=== PATIENT | male | born 1975 | race Caucasian/White ===

== ENCOUNTER 2018-03-23 03:16 | Observation (INO) ==
[2018-03-23 06:26] LABS: Basophils % 0.1 %; Hematocrit 42.1 % (37.5-50.1); Hemoglobin 14.3 g/dL (12.9-16.9); Immature Granulocytes % 0.4 % (0-4); Lymphocytes # 2.8 K/mcL (0.6-4.6); Lymphocytes % 19.3 %; Mean Corpuscular Hemoglobin 29.7 pg (28.0-33.3); Mean Corpuscular Volume 87.3 fL (83.0-100.0); Mean Platelet Volume 9.9 fL (9.4-12.4); Monocytes # 1.4 K/mcL (0.0-1.3); Monocytes % 9.6 %; Neutrophils # 10.2 K/mcL (1.6-8.9); Platelet Count 200 K/mcL (140-400); Red Blood Count 4.82 M/mcL (4.19-5.50); Red Cell Distribution Width 13.3 % (11.5-14.5); Segmented Neutrophils % 70.6 %
[2018-03-23 06:49] LABS: BUN/Creatinine Ratio 23 (6-26); Blood Urea Nitrogen 14 mg/dL (6-20); Calcium 9.7 mg/dL (8.6-10.3); Carbon Dioxide 19 mEq/L (23-29); Chloride 104 mEq/L (98-107); Glucose 200 mg/dL (70-105); Magnesium 1.6 mg/dL (1.6-2.6); Osmolality,Calculated 290 (280-300); Potassium 4.4 mEq/L (3.5-5.1); Sodium 137 mEq/L (136-145); eGFR For Non-African Americans > 60 (> 60)
[2018-03-23] MEDS ORDERED: Naloxone 0.4 MG/ML INJ IVP PRN (07:24)
[2018-03-23] MEDS ORDERED: Dextrose Gel 15 GM/37.5 ML TUBE PO PRN ×2 (07:26)
[2018-03-23] MEDS ORDERED: *HR* Dextrose 50 % in Water (Syg) 50 ML SYRINGE IVP PRN (07:26)
[2018-03-23] MEDS ORDERED: D5% in Water 1,000 ML IVC PRN (07:26)
[2018-03-23 07:54] LABS: Chol/HDL Ratio 2.1 (0-4.9); Cholesterol 73 mg/dL (< 200); HDL Cholesterol 35 mg/dL (40-59); LDL Cholesterol,Calculated 20 mg/dL (0-99); Triglycerides 90 mg/dL (< 150)
[2018-03-23 08:08] LABS: Estimated Average Glucose 295 mg/dl; Hemoglobin A1C 11.9 %
[2018-03-23] MEDS: Insulin LISPRO 300 UNITS/3 ML VIAL SQ SCH ×5 (08:08→21:38)
[2018-03-23 08:17] LABS: Thyroid Stimulating Hormone < 0.010 mcIU/mL (0.340-5.600)
--- NOTE | 2018-03-23 08:44 | Internal Med History&Physical ---
Date of Encounter: 03/23/18 Time of Encounter: 07:40 Internal Medicine - H&P: HPI Chief complaint: palpitation Admitted From: Home History of present illness: Mr. Hi is a 42 year old male with past history of type 1 diabetes, tobacco abuse, presented to the outside hospital emergency department with sudden onset of palpitation and chest discomfort. Occurred at around 11 PM while taking a shower, midsternal, radiating to the jaw, sharp in nature, no aggravating/ relieving factors. He also had one episode of emesis without shortness of breath or diaphoresis. No fever/chills, cough, sputum production, abdominal pain , change in bowel habits, or dysuria. No joint pain or rash. Denies any sick contacts. At the outside hospital emergency department, his initial EKG was reported to be in afib with ventricular rate of 171. No changes concerning for ischemia was noted. First troponin was negative. Urine tox screen was positive for marijuana and oxycodone. Urinalysis was negative for nitrite or leukocyte esterase. He was given lovenox, IV metoprolol, and IV cardizem at the OSH ED and transferred to [facility] for further management. He had second troponin done when he arrived at [facility] which was again -ve. While looking at his telemetry, it appears that he has P waves preceding every QRS. Past Med Surg Social Fam HX - Past Medical History Medical history: diabetes, thyroid disease Psychiatric history: no psych history - Social History Smoking Status: Current every day smoker Packs per day: 1 Smokeless Tobacco Status: Yes Alcohol use: rarely Drug use: marijuana - Family History Mother Age: 61 Living Status: Still Living Hx Family Cardiac Disorders: No Hx Family Respiratory Disorders: No Hx Family Cancer: Yes (Melanoma) Hx Family GI Disorders: No Hx Family Genitourinary Disorders: No Hx Family Endocrine Disorder: No Hx Family Musculoskeletal Disorders: No Hx Family Neuromuscular Disorders: No Hx Family Neurologic Disorders: No Hx Family HEENT Disorders: No Hx Family Autoimmune Disorders: No Hx Family Reproductive Disorders: No Hx Family Psychosocial Disorders: No Hx Family Medical Disorders: No Father Age: 65 Living Status: Still Living Hx Family Cardiac Disorders: No Hx Family Respiratory Disorders: No Hx Family Cancer: No Hx Family GI Disorders: No Hx Family Genitourinary Disorders: No Hx Family Endocrine Disorder: No Hx Family Musculoskeletal Disorders: No Hx Family Neuromuscular Disorders: No Hx Family Neurologic Disorders: No Hx Family HEENT Disorders: No Hx Family Autoimmune Disorders: No Hx Family Reproductive Disorders: No Hx Family Psychosocial Disorders: No Hx Family Medical Disorders: No Internal Medicine - H&P: Meds Insulin ASPART [NovoLOG] 5 - 7 unit SQ ACHS 03/23/18 [History] Insulin Glargine [Lantus] 20 unit SQ BID 03/23/18 [History] 3 Allergy/AdvReac Type Severity Reaction Status Date / Time No Known Allergies Allergy Verified 03/23/18 05:40 All Systems PM: A 10-system review of systems was performed and is negative for pertinent findings except as documented above in the HPI. - Constitutional Vitals: Temp Pulse Resp BP Pulse Ox 97.9 F 122 16 142/76 95 03/23/18 07:48 03/23/18 08:22 03/23/18 07:48 03/23/18 08:22 03/23/18 08:22 Exam: General: Alert and oriented, not in acute distress. HEENT:EOM, pupils equal, round and reactive. Cardiovascular: Tachycardic, regular rhythm. Normal S1 & S2, No JVD. No murmur. Lungs: clear to auscultation, no wheezes/rales Abdomen:Soft, non-tender, no rigidity. Extremities:No deformity or swelling Neurological:Normal cognition and motor skills. Non-focal Skin:Normal color, no rash, no lesions. Pulses:Carotid and radial pulses normal +2. Rest of the physical exam is non contributory Internal Med - H&P Results - Labs CBC & Chem 7: 03/23/18 06:12 03/23/18 06:12 Labs: Short CBC 03/23/18 Range/Units 06:12 WBC 14.4 H (4.3-11.1) K/mcL Hgb 14.3 (12.9-16.9) g/dL Hct 42.1 (37.5-50.1) % Plt Count 200 (140-400) K/mcL Neutrophils # 10.2 H (1.6-8.9) K/mcL BMP 03/23/18 06:12 Sodium 137 Potassium 4.4 Chloride 104 Carbon Dioxide 19 L BUN 14 Creatinine 0.60 L Glucose 200 H Calcium 9.7 Cardiac Enzymes 03/23/18 Range/Units 06:12 Troponin I < 0.03 (< 0.04) ng/mL - Assessment and plan (1) Tachyarrhythmia Current Visit: Yes Status: Acute Assessment and plan: Last 2 EKGs reviewed (one from [facility] and [facility]) -> no clear P waves identified, ventricular rate varying from 130 to 170 Initially thought to be in A. fib with RVR but upon examining his telemetry, he appears to have P waves preceding QRS complexes. Will repeat EKG troponin -ve x 2, ACS ruled out [id number] score of 1 for DM. He was given lovenox at the [facility] ED, will wait till EKG comes back before initiating the patient on ASA. started on cardigem gtt, titrate off and try to use PRN lopressor check TSH Echocardiogram (2) Leukocytosis Current Visit: Yes Status: Acute Assessment and plan: Likely reactive, no signs and symptoms of infection identified Urinalysis was negative Check chest x-ray Monitor off antibiotics Qualifiers: Leukocytosis type: unspecified Qualified Code(s): D72.829 - Elevated white blood cell count, unspecified (3) Type 1 diabetes mellitus Current Visit: No Status: Chronic Assessment and plan: On Lantus 20 units twice a day & sliding scale Humalog resume levemir 20U BID with low dose sliding scale ADA diet check A1c Qualifiers: Diabetes mellitus complication status: with unspecified complications Qualified Code(s): E10.8 - Type 1 diabetes mellitus with unspecified complications (4) Tobacco abuse Current Visit: No Status: Chronic Assessment and plan: Counseling and education provided Declines nicotine replacement therapy (5) DVT prophylaxis Current Visit: Yes Status: Acute Assessment and plan: SCD - Time Spent With Patient Total time spent is greater than 50% in coordination of care (as documented) at patient's floor/unit and/or counseling patient:
[2018-03-23] MEDS ORDERED: *HR* Metoprolol 5 MG/5 ML VIAL IVP PRN (08:49)
[2018-03-23 10:06] LABS: Triiodothyronine (T3) Free 10.28 pg/mL (2.50-3.90)
[2018-03-23] MEDS: Insulin DETEMIR 100 UNIT/ML X5UNITS SQ SCH ×2 (14:07→21:30)
[2018-03-23] MEDS: methIMAzole 5 MG TABLET PO SCH ×2 (14:07→18:09)
[2018-03-23] MEDS ORDERED: Insulin LISPRO 300 UNITS/3 ML VIAL SQ SCH (21:00)
[2018-03-23] MEDS ORDERED: Insulin DETEMIR 100 UNIT/ML X5UNITS SQ SCH (21:00)
[2018-03-24] MEDS: methIMAzole 5 MG TABLET PO SCH ×4 (00:08→17:49)
[2018-03-24 06:10] LABS: Basophils % 0.1 %; Eosinophils # 0.2 K/mcL (0.0-0.6); Hematocrit 41.2 % (37.5-50.1); Hemoglobin 13.8 g/dL (12.9-16.9); Immature Granulocytes % 0.1 % (0-4); Lymphocytes # 2.7 K/mcL (0.6-4.6); Lymphocytes % 40.1 %; Mean Corpuscular HGB Conc 33.5 g/dL (31.6-35.5); Mean Corpuscular Volume 86.6 fL (83.0-100.0); Monocytes # 0.9 K/mcL (0.0-1.3); Monocytes % 13.2 %; Platelet Count 204 K/mcL (140-400); Red Blood Count 4.76 M/mcL (4.19-5.50); Red Cell Distribution Width 12.9 % (11.5-14.5); Segmented Neutrophils % 43.5 %
[2018-03-24 06:25] LABS: BUN/Creatinine Ratio 16 (6-26); Blood Urea Nitrogen 8 mg/dL (6-20); Calcium 9.6 mg/dL (8.6-10.3); Carbon Dioxide 22 mEq/L (23-29); Chloride 104 mEq/L (98-107); Glucose 251 mg/dL (70-105); Magnesium 1.4 mg/dL (1.6-2.6); Osmolality,Calculated 289 (280-300); Potassium 3.9 mEq/L (3.5-5.1); Sodium 136 mEq/L (136-145); eGFR For Non-African Americans > 60 (> 60)
[2018-03-24] MEDS: Insulin LISPRO 300 UNITS/3 ML VIAL SQ SCH ×4 (08:53→21:40)
[2018-03-24] MEDS: Insulin DETEMIR 100 UNIT/ML X5UNITS SQ SCH ×2 (08:54→21:40)
--- NOTE | 2018-03-24 13:03 | Internal Med Progress Note ---
Hospitalist Progress Note - Encounter Date of Encounter: 03/24/18 Time of Encounter: 09:13 - Subjective Interval History: Patient seen and examined this morning. Admitted for tachyarrythmia. Feeling better now. No palpitations, dizziness or chest pain. No sob. - Exam Vitals: Temp Pulse Resp BP Pulse Ox 97.8 F 94 16 140/86 97 03/24/18 11:39 03/24/18 11:39 03/24/18 11:39 03/24/18 11:39 03/24/18 11:39 Exam: General: Alert and oriented, not in acute distress. HEENT:EOM, pupils equal, round and reactive. Cardiovascular: regular rhythm. Normal S1 & S2, No JVD. No murmur. Lungs: clear to auscultation, no wheezes/rales Abdomen:Soft, non-tender, no rigidity. Extremities:No deformity or swelling Neurological:Normal cognition and motor skills. Non-focal Skin:Normal color, no rash, no lesions. - Assessment and Plan (1) Tachyarrhythmia Current Visit: Yes Status: Acute (2) Leukocytosis Current Visit: Yes Status: Acute (3) Type 1 diabetes mellitus Current Visit: No Status: Chronic (4) Tobacco abuse Current Visit: No Status: Chronic (5) DVT prophylaxis Current Visit: Yes Status: Acute - Summary of Assessment and Plan Summary of Assessment and Plan: Tachyarrhythmia - I believe patient has afib based on tele and first EKG. Symptoms lasting more than 48 hrs(since sunday 10 am till ER) and occasionally intermittently before. - Troponin -ve x 2, ACS ruled out - [id number] score of 1 for DM. He was given lovenox at the OSH ED. - Currently on cardigem gtt. Titrating down. - TSH suppressed. T3, T4 elevated. Started on Propranolol and methimazole. Will continue - ECHO with EF 65%, otherwise unremarkable. - Will continue lovenox for now. Consult cardiology for second opinion about long term care social worker anticoagulation. Discussed with patient about continuing AC for now. Patient agreeable. Leukocytosis - Likely reactive, no signs and symptoms of infection identified - UA and CXR unremarkable. - no indication for starting antibiotics Type 1 diabetes mellitus - On levemir, SSI and accucheks - ADA diet - A1c of 11.9 Tobacco and marijuana abuse - Counseling and education provided - Declines nicotine replacement therapy DVT prophylaxis - SCD - Time Spent with Patient Total time spent is greater than 50% in coordination of care (as documented) at patient's floor/unit and/or counseling patient: Internal Medicine: Result - Labs CBC & Chem 7: 03/24/18 05:47 03/24/18 05:47 Labs: Short CBC 03/24/18 Range/Units 05:47 WBC 6.8 D (4.3-11.1) K/mcL Hgb 13.8 (12.9-16.9) g/dL Hct 41.2 (37.5-50.1) % Plt Count 204 (140-400) K/mcL Neutrophils # 3.0 (1.6-8.9) K/mcL BMP 03/24/18 05:47 Sodium 136 Potassium 3.9 Chloride 104 Carbon Dioxide 22 L BUN 8 Creatinine 0.49 L Glucose 251 H Calcium 9.6 - Impressions Impressions Echocardiogram 03/23/18 07:23 Impressions: LVEF 65%. Normal LV chamber size, wall thickness and function. Mild left ventricular diastolic dysfunction. Normal right ventricular structure and function. No evidence of pulmonary hypertension. Chest X-Ray 03/23/18 08:42 IMPRESSION: No acute process. D/ / Fran Munoz MD / Fran Munoz MD Interpreting Provider: Fran Munoz MD Consult Discharge Plan - Plan Referrals: Avelina Sutton CNP [Primary Care Provider] - Mervin Taylor MD [Family Provider] - (2) Leukocytosis Qualifiers: Leukocytosis type: unspecified Qualified Code(s): D72.829 - Elevated white blood cell count, unspecified (3) Type 1 diabetes mellitus Qualifiers: Diabetes mellitus complication status: with unspecified complications Qualified Code(s): E10.8 - Type 1 diabetes mellitus with unspecified complications
[2018-03-24] MEDS ORDERED: *HR* Enoxaparin 60 MG/0.6 ML SYRINGE SQ SCH (16:09)
[2018-03-24] MEDS ORDERED: *HR* Metoprolol 5 MG/5 ML VIAL IVP PRN (16:15)
[2018-03-25] MEDS: methIMAzole 5 MG TABLET PO SCH ×2 (00:55→06:20)
[2018-03-25] MEDS ORDERED: *HR* Enoxaparin 60 MG/0.6 ML SYRINGE SQ SCH (06:00)
[2018-03-25] MEDS: Insulin DETEMIR 100 UNIT/ML X5UNITS SQ SCH (08:17)
[2018-03-25] MEDS: Insulin LISPRO 300 UNITS/3 ML VIAL SQ SCH ×2 (08:19→13:06)
[2018-03-25] MEDS ORDERED: methIMAzole 5 MG TABLET PO SCH (09:00)
--- NOTE | 2018-03-25 10:00 | Cardiology Consult Note ---
<Miguel Ángel Napoles R - Last Filed: 03/25/18 09:56> Date of Encounter: 03/25/18 Time of Encounter: 09:56 Assessment and Plan (1) PAF (paroxysmal atrial fibrillation) Current Visit: Yes Status: Acute Outside ECG at [facility] reviewed--A-Fib RVR rate 169. Presented with CP and palpitations. New PAF diagnosis. Converted to SR after given IV lopressor and Cardizem. Currently maintaining SR. K 3.9, Mag 1.4--replace. TSH <0.010, Free T4 3.91, Free T3 10.28--management per primary team. Add PO Cardizem CD 120mg daily. TTE resulted--EF 65%, mild LVDD, no significant valvular dysfunction. [id number] 1 (DMI). Possibly a 2 for undiagnosed HTN given significant LVH on ECG. ASA 81mg daily for now. Recommend outpt follow-up with Dr. Mervin Escamilla (EP ) for new PAF. Consider outpt stress test to work-up ischemic cause given underlying type I DM. Anticipate sign off once seen and evaluated by Dr. Marino. Discussion w patient/family: The assessment and plan as outlined above was discussed with the patient and/or family members who expressed understanding and agreement. All questions were answered. Thank you for involving us in the care of your patient. Please call with any questions. I will discuss all the above with Dr. Marino and make changes as necessary. History of Present Illness Consult date: 03/25/18 Requesting physician: Radames Sanchez Consult reason: A-Fib Chief complaint: CP, palpitations History of present illness: Mr. Hi is a 42 year old male with PMH of type 1 diabetes, tobacco abuse, grave 's disease, presented to the outside hospital ED with sudden onset of palpitation and chest discomfort. Occurred at around 11 PM last night while taking a shower, across his chest sharp in nature, no aggravating/relieving factors. He also had one episode of vomiting. At [facility], his initial EKG was reported to be in afib with ventricular rate of 169 with LVH. Troponin negative. Urine tox screen was positive for marijuana and oxycodone. Urinalysis was negative for nitrite or leukocyte esterase. He was given lovenox , IV metoprolol, and IV cardizem at the OSH ED and transferred to [facility] for further management. He converted to SR and states as soon as he did, his chest pain subsided. Currently SR with no complaints. TTE resulted-- EF 65%, mild LVDD , normal RV structure and function, no phtn, no significant valvular dysfunction. Past Med Surg Social Fam HX - Past Medical History Medical history: diabetes, thyroid disease Psychiatric history: no psych history - Social History Smoking Status: Current every day smoker Packs per day: 1 Smokeless Tobacco Status: Yes Alcohol use: rarely Drug use: marijuana - Family History Mother Age: 61 Living Status: Still Living Hx Family Cardiac Disorders: No Hx Family Respiratory Disorders: No Hx Family Cancer: Yes (Melanoma) Hx Family GI Disorders: No Hx Family Genitourinary Disorders: No Hx Family Endocrine Disorder: No Hx Family Musculoskeletal Disorders: No Hx Family Neuromuscular Disorders: No Hx Family Neurologic Disorders: No Hx Family HEENT Disorders: No Hx Family Autoimmune Disorders: No Hx Family Reproductive Disorders: No Hx Family Psychosocial Disorders: No Hx Family Medical Disorders: No Father Age: 65 Living Status: Still Living Hx Family Cardiac Disorders: No Hx Family Respiratory Disorders: No Hx Family Cancer: No Hx Family GI Disorders: No Hx Family Genitourinary Disorders: No Hx Family Endocrine Disorder: No Hx Family Musculoskeletal Disorders: No Hx Family Neuromuscular Disorders: No Hx Family Neurologic Disorders: No Hx Family HEENT Disorders: No Hx Family Autoimmune Disorders: No Hx Family Reproductive Disorders: No Hx Family Psychosocial Disorders: No Hx Family Medical Disorders: No Medications and Allergies Insulin ASPART [NovoLOG] 5 - 7 unit SQ ACHS 03/23/18 [History] Insulin Glargine [Lantus] 20 unit SQ BID 03/23/18 [History] 3 Allergy/AdvReac Type Severity Reaction Status Date / Time No Known Allergies Allergy Verified 03/23/18 05:40 All Systems Review: The remainder of the systems were reviewed and are negative - Cardiovascular Cardiovascular: as per HPI, chest pain at rest, chest pain with exertion, palpitations - Gastrointestinal Gastrointestinal: nausea Physical Examination Vital Signs, Last 4 Hours Temp Pulse Resp BP Pulse Ox 03/25/18 07:51 99.4 F 85 18 140/91 97 Vital Signs Temp Pulse Resp BP Pulse Ox 03/25/18 07:51 99.4 F 85 18 140/91 97 03/25/18 04:38 98.1 F 87 16 130/90 95 03/25/18 00:26 98.0 F 103 16 139/82 97 03/24/18 21:00 94 03/24/18 20:00 99.2 F 98 16 151/93 94 03/24/18 16:59 98.7 F 95 16 150/83 97 03/24/18 11:39 97.8 F 94 16 140/86 97 Intake and Output 03/24/18 03/25/18 03/25/18 23:59 07:59 15:59 Intake Total 480 / 480 100 / 100 360 / 360 Output Total 625 / 625 700 / 700 Balance 480 / 480 -525 / -525 -340 / -340 Intake: IV Fluids 100 / 100 Cardizem 50 MG In 0.9 % Sodium 100 / 100 Chloride 40 ML @ 10 MG/HR 10 mls/hr IVC .Q5H XOCHILT Rx#: [id number] Oral 480 / 480 360 / 360 Output: Urine 625 / 625 700 / 700 Other: Meal Breakfast Percent of Meal Consumed 100% # Voids 1 # Bowel Movements 1 Weight 63 kg Blood Glucose* 201 220 Patient Weight 03/25/18 23:59 Weight 63 kg General: Conversant, No Apparent Distress HEENT: Atraumatic, Normocephaly, Mucus Membranes Moist Neck: No JVD, Normal carotid pulses Cardiac: Reg Rate and Rhythm, Normal S1 and S2, No Murmur Lungs: Normal Breath Sounds, No Wheeze, Rales, Rhonchi Neuro: Alert and responsive, No focal deficits noted Abdomen: Soft, Non-Tender Skin: No rashes noted on visualized skin Musculoskeletal: No Chest Wall Tenderness Extremities: No Clubbing, No Cyanosis, No Edema, Normal Pulses Results 03/24/18 05:47 03/24/18 05:47 Impressions Echocardiogram 03/23/18 07:23 Impressions: LVEF 65%. Normal LV chamber size, wall thickness and function. Mild left ventricular diastolic dysfunction. Normal right ventricular structure and function. No evidence of pulmonary hypertension. Active Medications Dextrose/Water (Dextrose 50% (Syg)) 25 ml IVP AD PRN PRN Reason: Hypoglycemia Stop: 09/22/18 07:27 Enoxaparin Sodium (Lovenox) 60 mg SQ Q12HCO XOCHILT PRN Reason: Protocol Stop: 09/23/18 16:10 Last Admin: 03/25/18 06:20 Dose: 60 mg Glucagon (Glucagen) 1 mg IM ONCE PRN PRN Reason: Hypoglycemia Stop: 09/22/18 07:27 Glucose (Gluctose) 15 gm PO ONCE PRN PRN Reason: Hypoglycemia Stop: 09/22/18 07:27 Glucose (Gluctose) 30 gm PO ONCE PRN PRN Reason: Hypoglycemia Stop: 09/22/18 07:27 Diltiazem HCl 50 mg/ Sodium (Chloride) 50 mls @ 10 mls/hr IVC .Q5H XOCHILT; 10 MG/ HR PRN Reason: Protocol Stop: 09/22/18 06:16 Last Infusion: 03/25/18 06:27 Dose: Infused Dextrose (Dextrose 5%) 1,000 mls @ 100 mls/hr IVC .Q10H PRN PRN Reason: HYPOGLYCEMIA Stop: 09/22/18 07:27 Insulin Detemir (Levemir) 20 unit SQ BID [facility] Stop: 09/22/18 09:01 Last Admin: 03/25/18 08:17 Dose: 20 unit Insulin Human Lispro (Humalog) 0 units SQ HS XOCHILT PRN Reason: Protocol Stop: 09/22/18 21:01 Last Admin: 03/24/18 21:40 Dose: 3 unit Insulin Human Lispro (Humalog) 0 units SQ TIDAC XOCHILT PRN Reason: Protocol Stop: 09/22/18 16:31 Last Admin: 03/25/18 08:19 Dose: 6 units Methimazole (Tapazole) 20 mg PO BID [facility] Stop: 09/24/18 09:01 Last Admin: 03/25/18 08:16 Dose: 20 mg Metoprolol Tartrate (Lopressor) 5 mg IVP Q6HR PRN PRN Reason: Heart Rate- High Stop: 09/23/18 16:16 Naloxone HCl (Narcan) 0.4 mg IVP Q2MIN PRN PRN Reason: SEE COMMENTS Stop: 09/22/18 07:25 Propranolol HCl (Inderal) 20 mg PO Q6H [facility] Stop: 09/22/18 12:46 Last Admin: 03/25/18 06:20 Dose: 20 mg - Imaging and Cardiology Echo: report reviewed - EKG Interpretation EKG results cardiology: personally reviewed, other (12 hr tele AVG HR 94, SR) Consult Discharge Plan - Plan Referrals: Avelina Sutton CNP [Primary Care Provider] - Mervin Taylor MD [Family Provider] - <Dionicio Marino - Last Filed: 03/25/18 10:59> Date of Encounter: 03/25/18 - Attending Attestation I have personally performed a face to face evaluation on this patient. I have reviewed and agree with the care plan. History and Exam by me shows: CC: Palpitations PT reports developed sudden onset of heart racing while in the shower, associated with sharp chest pain and tightness, one episode on nausea with emesis. He sat down with some improvement in symptoms. He reports chest pain and nausea resolved, but continued to feel his heart was racing. He went to [facility], heart rate found to be in the 160s with a fib with RVR. He received a bolus and infusion of IV diltiazem with conversion to NSR. He has not had a reoccurence of symptoms. This is his first cardiac event. He has multiple risk factors, including male gender, diabetes type 1, smoking tobacco and weed. He is unsure of his cholesterol status. PMH: reviewed, note has hx thryoiditis, not currently managed ROS: reviewed PE: Pt seen and examined, agree with findings as documented IMP/Plan: 1. A fib with RVR, new onset, converted to NSR with IV diltiazem, will continue PO, not a candidate for systemic anticoagulation with CHADsVASC 1., is at low risk for hospital discharge, will continue to follow as outpatient. 2. Chest pain, likely due to rapid heart rate, troponins negative, will need stress test as outpatient due to multiple risk factors. 3. Type 1 IDDM, primary care managing. 4. Hyperthyroid - hx Graves, needs close follow up, hyperthyroid state may be driving A fib 5. Tobacco/marijuana use: pt would be willing to consider discontinuing tobacco but not marijuana, will discuss further as outpatient, recommend not smoking either. Assessment and Plan Discussion w patient/family: The assessment and plan as outlined above was discussed with the patient and/or family members who expressed understanding and agreement. All questions were answered. Thank you for involving us in the care of your patient. Please call with any questions. History of Present Illness History of present illness: Mr. Hi is a 42 year old male All Systems Review: The remainder of the systems were reviewed and are negative Physical Examination Vital Signs, Last 4 Hours Temp Pulse Resp BP Pulse Ox 03/25/18 07:51 99.4 F 85 18 140/91 97 Results 03/24/18 05:47 03/24/18 05:47
[2018-03-25] MEDS ORDERED: Diltiazem CD (24hr) 120 MG CAPSULE PO SCH (10:15)
[2018-03-25] MEDS ORDERED: Aspirin 81 MG TAB.CHEW PO SCH (10:15)
--- NOTE | 2018-03-25 12:26 | Discharge Summary ---
- NOTES TO OUTPATIENT PROVIDER Notes to Outpatient Provider: Has new A. fib needs cardiology follow-up ischemic evaluation with stress test. Orders not resulted at time of discharge: Pending orders 03/23/18 06:12 PT Inhibitor Assay,Reflex Stat PTT Inhibitor Assay,Reflex Stat Date of Encounter: 03/25/18 Time of Encounter: 12:20 - Discharge Diagnosis (1) Tachyarrhythmia Priority: Primary Status: Acute (2) Leukocytosis Priority: Secondary Status: Acute Qualifiers: Leukocytosis type: unspecified Qualified Code(s): D72.829 - Elevated white blood cell count, unspecified (3) Type 1 diabetes mellitus Priority: Secondary Status: Chronic Qualifiers: Diabetes mellitus complication status: with unspecified complications Qualified Code(s): E10.8 - Type 1 diabetes mellitus with unspecified complications (4) Tobacco abuse Priority: Secondary Status: Chronic (5) DVT prophylaxis Priority: Secondary Status: Acute (6) PAF (paroxysmal atrial fibrillation) Priority: Primary Status: Acute (7) Thyrotoxicosis Priority: Primary Status: Acute Qualifiers: Qualified Code(s): E05.90 - Thyrotoxicosis, unspecified without thyrotoxic crisis or storm Hospital course: Mr. Hi is a 42 year old male with past medical history of type 1 diabetes, Graves' disease was admitted due to tachyarrhythmia. Patient was found to have suppressed TSH and elevated T3-T4. Patient had paroxysmal A. fib and converted to sinus rhythm. Was on Cardizem drip and was started on methimazole and propranolol. Patient reverted to normal sinus rhythm afterwards. Patient received initially anticoagulation. Has Arias vascular score of 2. Was started on aspirin and Cardizem as per cardiology. Patient's hypothyroidism was treated with propranolol and methimazole. Patient was stable to be discharged to be followed with PCP as outpatient as well as cardiology for possible stress test and ischemic evaluation as outpatient. Discharge discussed with: patient, nurse, social work, case management, employment consultant - Time Spent with Patient Total time spent providing and/or coordinating discharge services: Greater than 30 minutes - Discharge Medications Prescriptions: Aspirin 81 mg PO DAILY 30 Days #30 tab.chew Diltiazem CD (24hr) [Cardizem CD] 120 mg PO DAILY 30 Days #30 cap.er.24h methIMAzole [Tapazole] 20 mg PO BID 30 Days #60 tablet Propranolol [Inderal] 10 mg PO Q8HR 20 Days #60 tablet Home Medications: Insulin ASPART [NovoLOG] 5 - 7 unit SQ ACHS 03/23/18 [History] Insulin Glargine [Lantus] 20 unit SQ BID 03/23/18 [History] Aspirin 81 mg PO DAILY 30 Days #30 tab.chew 03/25/18 [Rx] Diltiazem CD (24hr) [Cardizem CD] 120 mg PO DAILY 30 Days #30 cap.er.24h [Rx] Propranolol [Inderal] 10 mg PO Q8HR 20 Days #60 tablet 03/25/18 [Rx] methIMAzole [Tapazole] 20 mg PO BID 30 Days #60 tablet 03/25/18 [Rx] Allergies/Adverse Reactions: 3 Allergy/AdvReac Type Severity Reaction Status Date / Time No Known Allergies Allergy Verified 03/23/18 05:40 Date of admission: 03/23/18 05:05 Primary care physician: Avelina Sutton CNP Consults: 03/24/18 16:06 Consult to Cardiology [CONS] Routine Comment: Consulting Provider: [facility] [place] Reason for Consult: New afib Call Completed: No Discharging clinician: Radames Sanchez - Constitutional Vitals: Temp Pulse Resp BP Pulse Ox 99.4 F 85 18 140/91 97 03/25/18 07:51 03/25/18 07:51 03/25/18 07:51 03/25/18 07:51 03/25/18 07:51 Exam: General: Alert and oriented, not in acute distress. HEENT:EOM, pupils equal, round and reactive. Cardiovascular: regular rhythm. Normal S1 & S2, No JVD. No murmur. Lungs: clear to auscultation, no wheezes/rales Abdomen:Soft, non-tender, no rigidity. Extremities:No deformity or swelling Neurological:Normal cognition and motor skills. Non-focal Skin:Normal color, no rash, no lesions. - Patient Status Disposition: Home, Self-Care Condition: Fair - Discharge Instructions Follow Up With: Avelina Sutton CNP [Primary Care Provider] - Mervin Taylor MD [Family Provider] - - Diet and Activity Activity: resume usual activities as tolerated
[2018-03-25 12:54] VITALS: BP 148/101
--- NOTE | 2018-03-26 10:47 | Electrocardiograph Report ---
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
== END 2018-03-25 14:37 | disposition home or self-care (01) ==
LOC: 2NENU → SUATTDRO 05:05
PROVIDERS: ADMIT Pediatrics; ATTEND Internal Medicine

== ENCOUNTER 2018-04-25 01:40 | Inpatient (IN) ==
[2018-04-25] MEDS ORDERED: *HR* Heparin 5,000 UNIT/ML VIAL IVP PRN ×2 (03:55)
[2018-04-25] MEDS ORDERED: Acetaminophen 325 MG TABLET PO PRN (03:56)
[2018-04-25] MEDS ORDERED: Naloxone 0.4 MG/ML INJ IVP PRN (03:56)
[2018-04-25] MEDS ORDERED: Dextrose Gel 15 GM/37.5 ML TUBE PO PRN ×2 (04:02)
[2018-04-25] MEDS ORDERED: D5% in Water 1,000 ML IVC PRN (04:02)
[2018-04-25] MEDS ORDERED: *HR* Dextrose 50 % in Water (Syg) 50 ML SYRINGE IVP PRN (04:02)
[2018-04-25 04:19] LABS: Basophils % 0.4 %; Eosinophils # 0.2 K/mcL (0.0-0.6); Eosinophils % 1.7 %; Hematocrit 46.5 % (37.5-50.1); Hemoglobin 16.1 g/dL (12.9-16.9); Immature Granulocytes % 0.2 % (0-4); Lymphocytes # 3.9 K/mcL (0.6-4.6); Lymphocytes % 42.2 %; Mean Corpuscular HGB Conc 34.6 g/dL (31.6-35.5); Mean Corpuscular Hemoglobin 29.4 pg (28.0-33.3); Mean Platelet Volume 9.7 fL (9.4-12.4); Monocytes # 0.9 K/mcL (0.0-1.3); Monocytes % 9.9 %; Neutrophils # 4.2 K/mcL (1.6-8.9); Platelet Count 252 K/mcL (140-400); Red Blood Count 5.47 M/mcL (4.19-5.50); Red Cell Distribution Width 12.7 % (11.5-14.5); Segmented Neutrophils % 45.6 %
[2018-04-25] MEDS: Heparin 25,000 UNIT/500 ML D5W 25,000 UNIT/500 ML BAG IVC SCH ×2 (04:21→04:41)
[2018-04-25 04:22] LABS: VBG Ionized Calcium 1.18 mmol/L (1.15-1.35)
--- NOTE | 2018-04-25 04:24 | Internal Med History&Physical ---
<PitoJoss eden - Last Filed: 04/25/18 04:05> Date of Encounter: 04/25/18 Time of Encounter: 04:06 Internal Medicine - H&P: HPI Chief complaint: palpitations Admitted From: Emergency Dept Plans for Post Hospital Care: Home History of present illness: Mr. Hi is a 42 year old male with past medical history of paroxysmal atrial fibrillation, type I diabetes, tobacco use, hyperthyroidism. Patient was recen tly admitted to [facility] from 03/23-03/25 for new onset paroxysmal atrial fibrillation. During that time, he was seen by cardiology and was transitioned from IV to oral Cardizem. He was not placed on anticoagulation during this time because his CHADS/VASC score was 1. Plan for cardiology was to possibly do an outpatient ischemic evaluation. During his last hospitalization, he was found to have low TSH with elevated free T3 and elevated free T4, and was started on propanolol. Patient had appointment with cardiology on 04/17, but missed this appointment. Since his hospitalization, he states that he has not missed any doses of his Cardizem. He reported to [facility] emergency department today due to palpitations that started around 9:30 p.m. last night. He also reports intermittent shortness of breath and denies any chest pain. He denies nausea, vomiting, diarrhea, fever, chills, sick contacts. He does report intermittent use of cocaine since he left the hospital last time, and states that his last cocaine use was about one week ago. He denies excessive caffeine use and denies any recent illnesses. Patient does admit to marijuana use and tobacco use of one pack per day. He admits to occasional alcohol use as well. Labs at [facility] ER were as follows: magnesium 1.7. CBC, BMP unremarkable. APTT 27.4 PT 11 chest x-ray: no acute findings troponin: negative EKG at [facility] showed atrial fibrillation with rapid ventricular response, left ventricular hypertrophy, inverted T waves in V4, V5, V6 at [facility] emergency department, he was given aspirin and started on heparin and Cardizem GTT. After receiving Cardizem bolus, he was started on Cardizem GTT at 5 mg with good rate control and stable blood pressure. Past Med Surg Social Fam HX - Past Medical History Medical history: atrial fibrillation, diabetes, thyroid disease Psychiatric history: no psych history - Past Surgical History Additional surgical history: left middle finger sx, one testicle removed - Social History Smoking Status: Current every day smoker Packs per day: 0.5 Smokeless Tobacco Status: Yes Alcohol use: rarely Drug use: opiates, marijuana - Family History Father History Unknown: Yes Living Status: Still Living Hx Family Cardiac Disorders: No Hx Family Respiratory Disorders: No Hx Family Cancer: No Hx Family GI Disorders: No Hx Family Endocrine Disorder: No Hx Family Neuromuscular Disorders: No Hx Family Neurologic Disorders: No Hx Family HEENT Disorders: No Hx Family Autoimmune Disorders: No Mother Living Status: Still Living Hx Family Cardiac Disorders: Yes Hx Family Respiratory Disorders: No Hx Family Cancer: Yes (skin) Hx Family GI Disorders: No Hx Family Endocrine Disorder: Yes (dm) Hx Family Neuromuscular Disorders: No Hx Family Neurologic Disorders: No Hx Family HEENT Disorders: No Hx Family Autoimmune Disorders: No Internal Medicine - H&P: Meds RX: Insulin ASPART [NovoLOG] 5 - 7 unit SQ ACHS 03/23/18 [History] RX: Insulin Glargine [Lantus] 20 unit SQ BID 03/23/18 [History] RX: Aspirin 81 mg PO DAILY 30 Days #30 tab.chew 03/25/18 [Rx] RX: Diltiazem CD (24hr) [Cardizem CD] 120 mg PO DAILY 30 Days #30 cap.er.24h 03/25/18 [Rx] RX: Propranolol [Inderal] 10 mg PO Q8HR 20 Days #60 tablet 03/25/18 [Rx] RX: methIMAzole [Tapazole] 20 mg PO BID 30 Days #60 tablet 03/25/18 [Rx] Allergy/AdvReac Type Severity Reaction Status Date / Time No Known Allergies Allergy Verified 03/23/18 05:40 All Systems PM: A 10-system review of systems was performed and is negative for pertinent findings except as documented above in the HPI. - Constitutional Constitutional: as per HPI - EENT Eyes: as per HPI Ears: as per HPI Nose, mouth and throat: as per HPI - Breasts Breasts: as per HPI - Cardiovascular Cardiovascular ROS IM: as per HPI - Respiratory Respiratory: as per HPI - Gastrointestinal Gastrointestinal: as per HPI - Genitourinary Genitourinary ROS male: as per HPI - Musculoskeletal Musculoskeletal ROS IM: as per HPI - Integumentary Integumentary IM: as per HPI - Neurological Neurological ROS: as per HPI - Psychiatric Psychiatric: as per HPI - Endocrine Endocrine IM: as per HPI - Hematologic/Lymphatic Hematologic/Lymphatic: as per HPI - Allergic/Immunologic Allergic/Immunologic: as per HPI - Constitutional Vitals: Temp Pulse Resp BP Pulse Ox 98.3 F 114 16 131/89 96 04/25/18 03:05 04/25/18 03:05 04/25/18 03:05 04/25/18 03:05 04/25/18 03:05 General appearance: Present: A&O X 3, pleasant, no acute distress, answers questions appropriately Exam: alert and oriented x3, pleasant, no acute distress. - Head Head exam: Present: atraumatic, normocephalic - Eye Eye exam: Present: EOMI, normal appearance, PERRL, conjuntiva pink, sclera anicteric. Absent: conjunctival injection, nystagmus, periorbital swelling, periorbital tenderness, scleral icterus Pupils: Present: PERRL - ENT ENT exam: Present: mucous membranes moist, normal exam, normal external ear exam, normal oropharynx - Neck Neck exam general surgery: Present: full ROM, supple, trachea midline - Respiratory Respiratory exam: Present: CTAB. Absent: rales, rhonchi, stridor, wheezes - Cardiovascular Cardiovascular exam: Present: irregular rhythm, +S1, +S2, tachycardia. Absent: diastolic murmur, gallop, systolic murmur - GI/Abdominal GI/Abdominal exam: Present: normal bowel sounds, soft. Absent: distended, tenderness - Extremities Exam Extremities exam: Absent: calf tenderness, cyanotic, pedal edema - Neurological Exam Neurological exam: Present: alert, oriented X3, no focal deficits - Psychiatric Psychiatric exam: Present: normal affect, normal mood - Assessment and plan (1) Atrial fibrillation with RVR Current Visit: Yes Status: Acute Assessment and plan: 42-year-old male arrived to [facility] ED with chief complaint of palpitations that started last night. He was recently admitted to [facility] last month and was newly diagnosed with paroxysmal atrial fibrillation. He was transitioned from IV to oral Cardizem, and was found to have low TSH with elevated free T3 and free T4. During that time, he was started on propanolol. Patient admits to use of marijuana, cocaine. Chest x-ray done at [facility] emergency department was unremarkable, according to review of records. Based on chart review from [facility], there is currently no suspicion of sepsis or infection. Etiology likely multifactorial secondary to noncompliance and cocaine use CHADS/VASC: 1 Plan: consult to cardiology for possible ischemic evaluation continue heparin and Cardizem gtt repeat labs replace electrolytes as needed repeat TSH UDS pending patient counseled on cocaine use and its related risks of Afib. resume home thyroid meds and propanolol once med list verified. (2) Type 1 diabetes mellitus Current Visit: No Status: Chronic Assessment and plan: Basal insulin ACHS accuchecks ADA diet Qualifiers: Diabetes mellitus complication status: with unspecified complications Qualified Code(s): E10.8 - Type 1 diabetes mellitus with unspecified complications (3) Tobacco abuse Current Visit: No Status: Chronic Assessment and plan: History of tobacco use smoking cessation advised (4) Hyperthyroidism Current Visit: Yes Status: Acute Assessment and plan: Restart home medication Methimazole once medications are verified (5) DVT prophylaxis Current Visit: No Status: Acute Assessment and plan: Continue heparin GTT - Time Spent With Patient Total time spent is greater than 50% in coordination of care (as documented) at patient's floor/unit and/or counseling patient: <Yasmine Talavera - Last Filed: 04/25/18 04:37> Date of Encounter: 04/25/18 All Systems PM: A 10-system review of systems was performed and is negative for pertinent findings except as documented above in the HPI. - Constitutional Vitals: Temp Pulse Resp BP Pulse Ox 98.3 F 113 16 147/98 97 04/25/18 03:05 04/25/18 04:00 04/25/18 04:00 04/25/18 04:00 04/25/18 04:00 Internal Med - H&P Results - Labs CBC & Chem 7: 04/25/18 04:09 Labs: Short CBC 04/25/18 Range/Units 04:09 WBC 9.2 (4.3-11.1) K/mcL Hgb 16.1 (12.9-16.9) g/dL Hct 46.5 (37.5-50.1) % Plt Count 252 (140-400) K/mcL Neutrophils # 4.2 (1.6-8.9) K/mcL - Time Spent With Patient Total time spent is greater than 50% in coordination of care (as documented) at patient's floor/unit and/or counseling patient: - Attending Attestation I performed a history and physical exam of the patient and discussed management with the resident. I reviewed the resident's note and agree with the documented findings and plan of care. Jason Hi is a 42 year old man with recently diagnosed paroxysmal atrial fibrillation in the setting of a biochemically hyperthyroid state in addition to illicit drug use. During his index admission for this 1 month ago, he was placed on long-acting diltiazem, methimazole and propranolol with recommendations for outpatient cardiology follow up which he did not comply with. He presents again on transfer from [facility] in a state of a.fib w/ RVR. He admits to using cocaine and marijuana of recent in addition to being an active smoker. Will keep him on telemetry, repeat comprehensive blood work, recheck TSH, heparin gtt for now and continue diltiazem drip then transition to PO once rate more controlled. Will benefit from cardiology re-evaluation. Insulin for diabetes mgmt. Counseling on drug use given, resources made available, director of social work visitation. BUNNY PEDROZA.
[2018-04-25 04:31] LABS: Heparin anti-factor XA UFH 0.31 IU/mL (0.30-0.70); Prothrombin Time 10.8 Seconds (9.4-12.1)
[2018-04-25 04:41] LABS: Alanine Aminotransferase 21 Units/L (7-52); Albumin 3.8 g/dL (3.5-5.7); Albumin/Globulin Ratio 1.3 (1.1-2.2); Alkaline Phosphatase 152 Units/L (34-104); Aspartate Amino Transferase 12 Units/L (13-39); BUN/Creatinine Ratio 32 (6-26); Bilirubin,Total 0.7 mg/dL (0.3-1.0); Blood Urea Nitrogen 14 mg/dL (6-20); Calcium 9.6 mg/dL (8.6-10.3); Carbon Dioxide 24 mEq/L (23-29); Chloride 103 mEq/L (98-107); Globulin 2.9 g/dL (2.4-3.5); Glucose 208 mg/dL (70-105); Magnesium 1.6 mg/dL (1.6-2.6); Osmolality,Calculated 293 (280-300); Phosphorous 3.9 mg/dL (2.7-4.5); Potassium 3.7 mEq/L (3.5-5.1); Sodium 138 mEq/L (136-145); Total Protein 6.7 g/dL (6.4-8.9); eGFR For Non-African Americans > 60 (> 60)
[2018-04-25 05:00] LABS: Thyroid Stimulating Hormone < 0.010 mcIU/mL (0.340-5.600)
[2018-04-25] MEDS: Insulin DETEMIR 100 UNIT/ML X5UNITS SQ SCH ×2 (05:34→21:46)
[2018-04-25 06:04] LABS: Amphetamine Screen,Urine Negative ng/mL (Cutoff=1000); Barbiturate Screen,Urine Negative ng/mL (Cutoff=200); Benzodiazepines Screen,Urine Negative ng/mL (Cutoff=200); Cannabinoid Screen,Urine Positive ng/mL (Cutoff = 50); Cocaine Screen,Urine Negative ng/mL (Cutoff= 300); Opiate Screen,Urine Negative ng/mL (Cutoff=300); Phencyclidine Screen,Urine Negative ng/mL (Cutoff=25)
[2018-04-25 06:36] LABS: Triiodothyronine (T3) Free 9.01 pg/mL (2.50-3.90)
[2018-04-25] MEDS: Insulin LISPRO 300 UNITS/3 ML VIAL SQ SCH ×3 (07:57→16:40)
--- NOTE | 2018-04-25 08:55 | Cardiology Consult Note ---
<DanielTess ahuja Titus - Last Filed: 04/25/18 14:26> Date of Encounter: 04/25/18 Time of Encounter: 08:43 Assessment and Plan (1) Atrial fibrillation with RVR Current Visit: Yes Status: Acute Resolved; Currently HR 90s NSR on cardizem drip of 5 with paroxysmal intervals of A fib on tele. EKGs reviewed. Etiology with multiple risk factors including poorly controlled DM but potentially reversibles cause of A fib are hyperthyroidism and cocaine use . CAD VASC score of 2 with DM and male; [facility] anticoagulation unlikely to benefit this patient given history of poor adherence. - discontinue heparin drip, start asa - discontinue Cardizem drip, transitioned to PO today to 120 mg but plan to increase dose to 240 mg starting tomorrow - okay with transfer out of ICU to floor - educated patient on risks associated with cocaine use and encouraged abstinence from polysubstance abuse, consider social work consult - consider Endocrinology consult for hyperthyroidism as possible A fib may resolved with treatment - may benefit from decrease risk factors with better glucose control per primary team Negative Troponin x1 with no history chest pain or ischemic changes on EKG. TSH < 0.01 with T4 2.8 anf T3 9. Last lipid panel on 03-23 essentially normal Last Echo 03-24-18 showed EF 65% with mild diastolic dysfunction, and mild atrial dilation, (2) Hyperthyroidism Current Visit: Yes Status: Acute Possible reversible etiology of A fib Discussion w patient/family: The assessment and plan as outlined above was discussed with the patient and/or family members who expressed understanding and agreement. All questions were answered. Thank you for involving us in the care of your patient. Please call with any questions. History of Present Illness Consult date: 04/25/18 Consult reason: A fib with RVR Chief complaint: palpitation History of present illness: Mr. Hi is a 42 year old male hx DM, hyperthyroidism, and Afib presented with palpitations transferred from [facility] for Afib with RVR. Recent new diagnosis of Afib on last admit 03-23. He admits to onset of palpitations , lightheaded, and shortness of breath acute onset last night while showering . Denies chest pain and syncope. He report compliance with Cardizem and propanolol. He has had no previous symptoms since discharge 03-25 but failed to follow up with cardiology out patient. Currently on cardizem drip; states all symptoms have resolved. But he is concerned about his triglcerides level as he believes it it cause of a fib and rash with history of hypertriglyceridemia in thousands at [facility] per patient. His diabetes is poorly controlled with average random glucose in 350-400 range. He admits to cocaine use earlier this week with chronic use of marijuana up to one once per week, smokes tobacco 20 pk yr, and opioid use denies IV. Last Echo 03-24-17 with EF 65% and mild diastolic dysfunction with mild atrial dilation. Past Med Surg Social Fam HX - Past Medical History Medical history: atrial fibrillation, diabetes, thyroid disease Psychiatric history: no psych history - Past Surgical History Additional surgical history: left middle finger sx, one testicle removed - Social History Smoking Status: Current every day smoker Packs per day: 0.5 Smokeless Tobacco Status: Yes Alcohol use: rarely Drug use: opiates, marijuana - Family History Mother Living Status: Still Living Hx Family Cardiac Disorders: Yes Hx Family Respiratory Disorders: No Hx Family Cancer: Yes (skin) Hx Family GI Disorders: No Hx Family Endocrine Disorder: Yes (dm) Hx Family Neuromuscular Disorders: No Hx Family Neurologic Disorders: No Hx Family HEENT Disorders: No Hx Family Autoimmune Disorders: No Father History Unknown: Yes Living Status: Still Living Hx Family Cardiac Disorders: No Hx Family Respiratory Disorders: No Hx Family Cancer: No Hx Family GI Disorders: No Hx Family Endocrine Disorder: No Hx Family Neuromuscular Disorders: No Hx Family Neurologic Disorders: No Hx Family HEENT Disorders: No Hx Family Autoimmune Disorders: No Medications and Allergies Insulin ASPART [NovoLOG] 5 - 7 unit SQ ACHS 03/23/18 [History] Insulin Glargine [Lantus] 20 unit SQ BID 03/23/18 [History] Aspirin 81 mg PO DAILY 30 Days #30 tab.chew 03/25/18 [Rx] Diltiazem CD (24hr) [Cardizem CD] 120 mg PO DAILY 30 Days #30 cap.er.24h 03/25/18 [Rx] Propranolol [Inderal] 10 mg PO Q8HR 20 Days #60 tablet 03/25/18 [Rx] methIMAzole [Tapazole] 20 mg PO BID 30 Days #60 tablet 03/25/18 [Rx] Allergy/AdvReac Type Severity Reaction Status Date / Time No Known Allergies Allergy Verified 03/23/18 05:40 All Systems Review: The remainder of the systems were reviewed and are negative - Constitutional Constitutional: other (denies increased tempature sensitivity), no fever(s), no frequent falls - EENT Eyes: no loss of vision Nose, mouth and throat: mouth pain - Cardiovascular Cardiovascular: dyspnea at rest, irregular heart rhythm, lightheadedness, palpitations, no chest pain at rest, no radiating jaw, neck or arm pain, no leg edema, no syncope - Respiratory Respiratory: dyspnea, no cough, no wheezing - Gastrointestinal Gastrointestinal: no abdominal pain, no diarrhea, no nausea - Musculoskeletal Musculoskeletal: arthralgias, muscle cramps (with acitivity) - Neurological Neurological: dizziness, no memory loss, no syncope - Psychiatric Psychiatric: depression, no anxiety, no panic attacks - Hematological/Lymphatic Hematologic/Lymphatic: no easy bleeding Physical Examination Vital Signs, Last 4 Hours Pulse Resp BP Pulse Ox 04/25/18 08:00 96 15 118/90 97 04/25/18 06:00 100 16 119/68 98 04/25/18 05:00 107 16 140/81 97 General: Conversant, No Apparent Distress HEENT: Atraumatic, Normocephaly, Mucus Membranes Moist, Other (poor dentition with tooth decay) Neck: No JVD, Normal carotid pulses, Other (thyriod non tender, not enlarged , no nodules) Cardiac: Reg Rate and Rhythm (HR 90s), Normal S1 and S2, No Murmur Lungs: Normal Breath Sounds, No Wheeze, Rales, Rhonchi Neuro: Alert and responsive, No focal deficits noted Abdomen: Soft, Non-Tender Skin: Other (rash of small white pustules less than one mm) Musculoskeletal: No Chest Wall Tenderness Extremities: No Clubbing, No Cyanosis, No Edema, Normal Pulses Results 04/25/18 04:09 04/25/18 04:09 Lab Results 04/25/18 04/25/18 04/25/18 04:09 04:09 04:09 WBC Hgb Hct Plt Count INR 1.0 Sodium 138 Potassium 3.7 Chloride 103 Carbon Dioxide 24 BUN 14 Creatinine 0.44 L Glucose 208 H Calcium 9.6 Magnesium 1.6 Total Bilirubin 0.7 AST 12 L ALT 21 Alkaline Phosphatase 152 H Troponin I < 0.03 TSH 04/25/18 04/25/18 04:09 04:09 WBC 9.2 Hgb 16.1 Hct 46.5 Plt Count 252 INR Sodium Potassium Chloride Carbon Dioxide BUN Creatinine Glucose Calcium Magnesium Total Bilirubin AST ALT Alkaline Phosphatase Troponin I TSH < 0.010 L - EKG Interpretation EKG results cardiology: personally reviewed, other (04-24-18 afib with RVR, no signs of acute ischemia 04-25-18 NSR, t wave inversion unchagnes from previous on 03-25) Consult Discharge Plan - Plan Referrals: NONE,PCP [Primary Care Provider] - <Courtney Calderon - Last Filed: 04/25/18 17:36> Date of Encounter: 04/25/18 - Attending Attestation I examined this patient and my medical decision-making was reviewed with the TUBE SPLICER. I agree with the documented findings, disposition and treatment plan as described. Mr. Hi presents with AFIB RVR now in NSR. Poorly controlled DM diagnosed a few years ago. Hyperthyroid just discovered. Patient AAOx3 at bedside in NAD Hemodynamically stable VS No concerning exam findings Troponins negative, no acute ischemic ECG findings Echo with normal LVEF Impression: 1. PAF: Newly discovered afib may be multifactorial and in part related to hyperthyroid state TSH <0.01. Recommend correction of thyroid disorder. He was started on propranolol by primary team. This should be used with caution given his history of cocaine use. I strongly advised the patient to stop using cocaine which also could contribute to dysrhythmia development. At this time, recommend uptitrating diltiazem. Discussed R/B/A of anticoagulation, CHADSVASC 2. The patient declines full anticoagulation - states he would not take it. We will therefore leave him on aspirin. He said he would follow up with us in the office. 2. Dyslipidemia: History of abnormal lipids per patient report. Lipids done recently are acceptable. States he was on crestor but stopped it (dosage?). Given LDL of 20, may consider reducing his dose of crestor or alternative statin. Will sign off. Please call with questions. Assessment and Plan Discussion w patient/family: The assessment and plan as outlined above was discussed with the patient and/or family members who expressed understanding and agreement. All questions were answered. Thank you for involving us in the care of your patient. Please call with any questions. History of Present Illness History of present illness: Mr. Hi is a 42 year old male All Systems Review: The remainder of the systems were reviewed and are negative Physical Examination Vital Signs, Last 4 Hours Pulse Resp BP Pulse Ox 04/25/18 14:46 92 20 144/90 97 Results 04/25/18 04:09 04/25/18 04:09 Lab Results 04/25/18 04/25/18 04/25/18 04:09 04:09 04:09 WBC Hgb Hct Plt Count INR 1.0 Sodium 138 Potassium 3.7 Chloride 103 Carbon Dioxide 24 BUN 14 Creatinine 0.44 L Glucose 208 H Calcium 9.6 Magnesium 1.6 Total Bilirubin 0.7 AST 12 L ALT 21 Alkaline Phosphatase 152 H Troponin I < 0.03 TSH 04/25/18 04/25/18 04:09 04:09 WBC 9.2 Hgb 16.1 Hct 46.5 Plt Count 252 INR Sodium Potassium Chloride Carbon Dioxide BUN Creatinine Glucose Calcium Magnesium Total Bilirubin AST ALT Alkaline Phosphatase Troponin I TSH < 0.010 L
[2018-04-25] MEDS: methIMAzole 5 MG TABLET PO SCH ×2 (12:10→20:48)
[2018-04-25] MEDS ORDERED: Diltiazem CD (24hr) 120 MG CAPSULE PO SCH (12:15)
--- NOTE | 2018-04-25 15:16 | Event Note ---
Date of Encounter: 04/25/18 Time of Encounter: 09:15 Mr. Hi is a 42 year old male with PMHx of DM, hyperthyroidism, and Afib. Patient presented with palpitations and shortness of breath, transferred from [facility] for Afib with RVR. Recently newly diagnosed with Afib on admission 03/23- 03/25. He notes acute onset of palpitations, lightheaded, and shortness of breath that began last night. He reports compliance with Cardizem and propanolol. Patient was started on cardizem drip, he converted to sinus tachy (HR 90's); states all symptoms have resolved. Seen by cardiology, cardizem gtt stopped and oral 120mg given. Plan to monitor patient overnight as this is the dose he previously converted into Afib on, if tolerating, plan to increase Cardizem to 240mg tomorrow AM. Poorly controlled diabetic that admits to cocaine and marijuana use. Hyperthyroidism with TSH <0.01 on methimazole. Exam: General: Awake, Alert, Oriented x 3, Conversant, No Apparent Distress HEENT: Atraumatic, Normocephaly, Mucus Membranes Moist Neck: normal exam, supple, nontender Cardiac: Reg Rate and Rhythm (HR 89-90s), Normal S1 and S2, No Murmur Lungs: Normal Breath Sounds, No Wheeze, Rales, Rhonchi Neuro: Alert and responsive, No focal deficits noted, speech normal Abdomen: Soft, Non-Tender Skin: dry, intact, warm Extremities: No Clubbing, No Cyanosis, No Edema, nontender A/P: 1)Atrial fibrillation with RVR Multiple risk factors that could contribute such as patient medication compliance, drug use, and hyperthyroidism. Cardiology consulted- resident plan reviewed by cardio team, though awaiting attending final note. Plan at this time to stop heparin gtt, CHADVASC of 2 (DM and male), advised starting daily ASA use. Cardizem gtt stopped, PO cardizem 120mg given, plan to observe overnight and if tolerating well increase to 240mg tomorrow. If stable, likely discharge tomorrow. 2) Type 1 DM Basal insulin ACHS accuchecks ADA diet 3) Hyperthyroidism Continue home medication, Methimazole 4) Tobacco use smoking cessation advised 5)DVT prophylaxis SQ heparin
[2018-04-25] MEDS: *HR* Heparin 5,000 UNIT/ML VIAL SQ SCH (17:46)
[2018-04-25] MEDS ORDERED: Insulin LISPRO 300 UNITS/3 ML VIAL SQ SCH (21:00)
[2018-04-26] MEDS: *HR* Heparin 5,000 UNIT/ML VIAL SQ SCH (05:27)
[2018-04-26] MEDS: Insulin LISPRO 300 UNITS/3 ML VIAL SQ SCH ×2 (07:45→12:01)
[2018-04-26] MEDS: methIMAzole 5 MG TABLET PO SCH (07:55)
[2018-04-26] MEDS ORDERED: Diltiazem CD (24hr) 240 MG CAPSULE PO SCH (09:00)
[2018-04-26] MEDS ORDERED: Aspirin 81 MG TAB.CHEW PO SCH (09:00)
--- NOTE | 2018-04-26 09:04 | Discharge Summary ---
<Luke Jones - Last Filed: 04/26/18 11:26> - NOTES TO OUTPATIENT PROVIDER Notes to Outpatient Provider: Patient to follow up with cardiology, discharged on higher dose of cardize (240mg). Caution with propanolol and cocaine use. Patient advised to stop cocaine and marijuana. Date of Encounter: 04/26/18 Time of Encounter: 08:20 - Discharge Diagnosis (1) Atrial fibrillation with RVR Priority: Primary Status: Acute (2) Hyperthyroidism Priority: Secondary Status: Chronic (3) Marijuana use Priority: Secondary Status: Chronic (4) Cocaine abuse Priority: Secondary Status: Chronic (5) Tobacco abuse Priority: Secondary Status: Chronic (6) Type 1 diabetes mellitus Priority: Secondary Status: Chronic Qualifiers: Diabetes mellitus complication status: with unspecified complications Qualified Code(s): E10.8 - Type 1 diabetes mellitus with unspecified complications Hospital course: Mr. Hi is a 42 year old male with PMHx Afib, DM, drug use (cocaine and marijuana), and Hyperthyroidism with TSH <0.01 on methimazole. Patient presented with palpitations and shortness of breath, transferred from [facility] for Afib with RVR. Recently newly diagnosed with Afib on admission 03/23- 03/25. He noted acute onset of palpitations, lightheaded, and shortness of breath that began the evening of 04/24/18. He reports compliance with Cardizem and pro panolol. Does note recent use of marijuana and cocaine within the week. Patient was started on cardizem drip, he converted to sinus tachy (HR 90's). A fib likely secondary to multiple factors cheryl as hyperthyroidism, medication compliance, and drug use. Patient noted all symptoms have resolved. Seen by cardiology, cardizem gtt stopped and oral 120mg given. Patient monitored overnight, he maintain HR of 90's in sinus rhythm, this AM we increased Cardizem to 240mg per cardiology. Patient monitored and did well on increased dose. Patient educated on affects of illicit drug use and interactions. Patient states he feels good this morning and is ready for discharge, he has remained hemodymapically stable. Plan to follow up with cardiology as outpatient. Discharge discussed with: patient Time spent discussing smoking cessation with patient: more than 10 minutes - Time Spent with Patient Total time spent providing and/or coordinating discharge services: Less than 30 minutes - Discharge Medications Prescriptions: Diltiazem CD (24hr) [Cardizem CD] 240 mg PO DAILY 14 Days #14 cap.er.24h Home Medications: Insulin ASPART [NovoLOG] 5 - 7 unit SQ ACHS 03/23/18 [History] Insulin Glargine [Lantus] 20 unit SQ BID 03/23/18 [History] Aspirin 81 mg PO DAILY 30 Days #30 tab.chew 03/25/18 [Rx] Propranolol [Inderal] 10 mg PO Q8HR 20 Days #60 tablet 03/25/18 [Rx] methIMAzole [Tapazole] 20 mg PO BID 30 Days #60 tablet 03/25/18 [Rx] Diltiazem CD (24hr) [Cardizem CD] 240 mg PO DAILY 14 Days #14 cap.er.24h 04/26/18 [Rx] Allergies/Adverse Reactions: Allergy/AdvReac Type Severity Reaction Status Date / Time No Known Allergies Allergy Verified 03/23/18 05:40 Date of admission: 04/25/18 03:06 Primary care physician: PCP NONE Consults: 04/25/18 03:59 Consult to Cardiology [CONS] Routine Comment: Consulting Provider: Cardiology [place] Reason for Consult: Afib RVR, was seen during last hospitalization. May need possible ischemic evaluation. Call Completed: No Discharging clinician: Miguel Leal Anticipated date of discharge: 04/26/18 - Constitutional Vitals: Temp Pulse Resp BP Pulse Ox 97.6 F 65 18 197/68 100 04/26/18 06:56 04/26/18 06:56 04/26/18 06:56 04/26/18 06:56 04/26/18 06:56 General appearance: Present: A&O X 3, pleasant, no acute distress, answers questions appropriately Exam: General: Awake, Alert, Oriented x 3, Conversant, No Apparent Distress HEENT: Atraumatic, Normocephaly, Mucus Membranes Moist Neck: normal exam, supple, nontender Cardiac: Reg Rhythm, mildly tachycardic, Normal S1 and S2, No Murmur Lungs: Normal Breath Sounds, No Wheeze, Rales, Rhonchi Neuro: Alert and responsive, No focal deficits noted, speech normal Abdomen: Soft, Non-Tender Skin: dry, intact, warm Extremities: No Clubbing, No Cyanosis, No Edema, nontender . - Patient Status Disposition: Home, Self-Care Condition: Good Functional capacity at discharge: independent ambulation Overall status at discharge: patient is back to baseline - Discharge Instructions Instructions: Diltiazem (By mouth), Atrial Fibrillation (DC), Cocaine Abuse (DC), Hyperthyroidism (DC) Follow Up With: Mervin Escamilla MD [Partnered Physician] - (cardiology f/u in the next 1-2 weeks. Office will call you.) Mervin Taylor MD [Partnered Physician] - Additional Instructions: Please avoid illicit drugs such as marijuana and cocaine as these can contribute to your heart arrhythmia. Please take medications as prescribed and follow up with your Primary Care Provider and with Cardiology. Return or seek medical care if you have new or returning symptoms such as hest pain, palpitations, shortness of breath. - Diet and Activity Activity: increase activity as tolerated Diet: diabetic diet <Miguel Leal - Last Filed: 04/26/18 19:07> Date of Encounter: 04/26/18 Hospital course: Mr. Hi is a 42 year old male - Time Spent with Patient Total time spent providing and/or coordinating discharge services: Date of admission: 04/25/18 03:06 Primary care physician: PCP NONE Consults: 04/25/18 03:59 Consult to Cardiology [CONS] Routine Comment: Consulting Provider: Cardiology [place] Reason for Consult: Afib RVR, was seen during last hospitalization. May need possible ischemic evaluation. Call Completed: No - Constitutional Vitals: Temp Pulse Resp BP Pulse Ox 97.9 F 94 16 149/90 97 04/26/18 11:55 04/26/18 11:55 04/26/18 11:55 04/26/18 11:55 04/26/18 11:55 - Attending Attestation I saw and indepently assessed this patient and agree with discharge summary above Mr. Hi is a 42 year old male with PMHx of DM, hyperthyroidism, and Afib. Patient presented with palpitations and shortness of breath, transferred from [facility] for Afib with RVR. Recently newly diagnosed with Afib on admission 03/23- 03/25. He notes acute onset of palpitations, lightheaded, and shortness of breath that began last night. Exam: General: Awake, Alert, Oriented x 3, Conversant, No Apparent Distress HEENT: Atraumatic, Normocephaly, Mucus Membranes Moist Neck: normal exam, supple, nontender Cardiac: Reg Rate and Rhythm (HR 89-90s), Normal S1 and S2, No Murmur Lungs: Normal Breath Sounds, No Wheeze, Rales, Rhonchi Neuro: Alert and responsive, No focal deficits noted, speech normal Abdomen: Soft, Non-Tender Skin: dry, intact, warm Extremities: No Clubbing, No Cyanosis, No Edema, nontender A/P: 1)Atrial fibrillation with RVR. Cardizem dose has been increased. continue aspirin
[2018-04-26] MEDS: Insulin DETEMIR 100 UNIT/ML X5UNITS SQ SCH (09:17)
[2018-04-26 11:58] VITALS: BP 149/90
--- NOTE | 2018-04-26 17:04 | Electrocardiograph Report ---
[place] [address] Test Date: 2018-04-25 Pat Name: Jason Hi Department: 112 Room: [facility] Gender: M Boat Worker: : 1975 Requested By: Joss Forrester Order Number: [id number] Reading MD: Ammon Lua Measurements Intervals [place] Rate: 88 P: 30 FL: 150 QRS: 58 QRSD: 97 T: 257 QT: 337 QTc: 383 Interpretive Statements SINUS RHYTHM LEFT VENTRICULAR HYPERTROPHY AND ST-T CHANGE Electronically Signed On 04-26-2018 17:02:25 EST by Ammon Lua
== END 2018-04-26 12:52 | disposition home or self-care (01) | DRG 310 ==
LOC: ICNU → 2SOUTHHOLD 13:54
PROVIDERS: ADMIT Internal Medicine; ATTEND Internal Medicine

== ENCOUNTER 2018-06-27 18:38 | Inpatient (IN) ==
[2018-06-27] MEDS ORDERED: Naloxone 0.4 MG/ML INJ IVP PRN (22:01)
[2018-06-27] MEDS ORDERED: Acetaminophen 325 MG TABLET PO PRN (22:01)
[2018-06-27] MEDS ORDERED: D5% in Water 1,000 ML IVC PRN (22:05)
[2018-06-27] MEDS ORDERED: Dextrose Gel 15 GM/37.5 ML TUBE PO PRN ×2 (22:05)
[2018-06-27] MEDS ORDERED: *HR* Morphine 2 MG/ML SYRINGE IVP PRN (22:05)
[2018-06-27] MEDS ORDERED: *HR* Dextrose 50 % in Water (Syg) 50 ML SYRINGE IVP PRN (22:05)
--- NOTE | 2018-06-27 22:10 | Internal Med History&Physical ---
Date of Encounter: 06/27/18 Time of Encounter: 21:30 Internal Medicine - H&P: HPI Chief complaint: palpitations Admitted From: Emergency Dept Plans for Post Hospital Care: Home History of present illness: Mr. Hi is a 42 year old male who presents in transfer from [facility] ER in [place]. He presented there with complaints of palpitations and vague chest tightness all day. In the ER, he was found to be in atrial fibrillation with RVR. He was started on Cardizem bolus and drip. He was transferred here for ongoing care and cardiology consultation. I reviewed old medical records from his last admission here and note that he has history of hyperthyroidism and cocaine use. Upon arrival to [facility], I saw him and assessed him at the bedside. He is currently in sinus tachycardia and BP is a little elevated. He denies any chest pain presently or dyspnea. He does complain of nausea and GI upset, however. I questioned him about illicit drug use, and he states he only tried cocaine once -- a few months ago. He denies any present use or recurrent use. He denies any excessive caffeine use, alcohol abuse, or energy drinks. I reviewed [facility] records and the EKG, which confirmed atrial fibrillation with RVR. Unfortunately, no lab results were forwarded from [facility]. Chest xray report from [facility] reveals no acute findings. Past Med Surg Social Fam HX - Past Medical History Attestation: Yes The following information was validated with the patient. Source: patient, old records reviewed, other (limited [facility] records) Medical history: atrial fibrillation, diabetes, thyroid disease Psychiatric history: no psych history - Past Surgical History Surgical History: other Additional surgical history: left middle finger sx, one testicle removed - Social History Smoking Status: Current every day smoker Smokeless Tobacco Status: Yes Alcohol use: rarely Drug use: cocaine (reports only one time use several months ago), opiates, marijuana Current living situation: Home, With Family Activity Level: Independent ambulation Recent Out of Country Travel Within the Last 8 Weeks: No - Family History Mother Living Status: Still Living Hx Family Cardiac Disorders: Yes Hx Family Respiratory Disorders: No Hx Family Cancer: Yes (skin) Hx Family GI Disorders: No Hx Family Endocrine Disorder: Yes (dm) Hx Family Neuromuscular Disorders: No Hx Family Neurologic Disorders: No Hx Family HEENT Disorders: No Hx Family Autoimmune Disorders: No Father Living Status: Still Living Hx Family Cardiac Disorders: No Hx Family Respiratory Disorders: No Hx Family Cancer: No Hx Family GI Disorders: No Hx Family Endocrine Disorder: No Hx Family Neuromuscular Disorders: No Hx Family Neurologic Disorders: No Hx Family HEENT Disorders: No Hx Family Autoimmune Disorders: No Internal Medicine - H&P: Meds Insulin ASPART [NovoLOG] 5 - 7 unit SQ ACHS 03/23/18 [History] Insulin Glargine [Lantus] 20 unit SQ BID 03/23/18 [History] Aspirin 81 mg PO DAILY 30 Days #30 tab.chew 03/25/18 [Rx] Propranolol [Inderal] 10 mg PO Q8HR 20 Days #60 tablet 03/25/18 [Rx] methIMAzole [Tapazole] 20 mg PO BID 30 Days #60 tablet 03/25/18 [Rx] Allergy/AdvReac Type Severity Reaction Status Date / Time No Known Allergies Allergy Verified 03/23/18 05:40 - Constitutional Constitutional: anorexia, night sweats, weight loss (unintentional ), no chills, no fatigue, no fever(s) - EENT Eyes: no blurry vision, no change in vision Ears: no ear pain, no tinnitus Nose, mouth and throat: no nasal congestion, no sinus pressure, no sore throat - Cardiovascular Cardiovascular ROS IM: chest pain, irregular heart rhythm, lightheadedness, palpitations, no dyspnea, no dyspnea on exertion, no paroxysmal nocturnal dyspnea, no syncope - Respiratory Respiratory: no cough, no hemoptysis, no dyspnea on exertion, no chest congestion, no excessive phlegm production, no change in phlegm color, no pain with cough - Gastrointestinal Gastrointestinal: cramping, heartburn, nausea, no abdominal pain, no diarrhea, no hematemesis, no hematochezia, no melena - Genitourinary Genitourinary ROS male: no dysuria, no flank pain, no hematuria - Musculoskeletal Musculoskeletal ROS IM: no arthralgias, no back pain - Integumentary Integumentary IM: no rash, no jaundice - Neurological Neurological ROS: no disequilibrium, no dizziness, no focal weakness, no frequent falls, no headache(s) - Psychiatric Psychiatric: no anxiety, no depression - Endocrine Endocrine IM: heat intolerance, no cold intolerance, no polydipsia, no polyphagia, no polyuria - Allergic/Immunologic Allergic/Immunologic: GI upset with certain foods, no wheezing - Constitutional Vitals: Temp Pulse Resp BP Pulse Ox 98.1 F 105 19 157/91 97 06/27/18 20:49 06/27/18 20:49 06/27/18 20:49 06/27/18 20:49 06/27/18 20:49 General appearance: Present: A&O X 3, no acute distress, answers questions appropriately Exam: nauseated but no acute distress; current HR 110's; BP 150/80's - Head Head exam: Present: atraumatic, normal inspection - Eye Eye exam: Present: EOMI, PERRL. Absent: scleral icterus Pupils: Present: normal accommodation - ENT ENT exam: Present: mucous membranes dry, normal exam, normal oropharynx Additional comments: poor dentition - Neck Neck exam general surgery: Present: full ROM, supple, trachea midline. Absent: tenderness, nuchal rigidity, thyromegaly - Respiratory Respiratory exam: Present: CTAB. Absent: chest wall tenderness, prolonged expiratory phase, rales, respiratory distress, rhonchi, wheezes - Cardiovascular Cardiovascular exam: Present: RRR, +S1, +S2, systolic murmur (grade 1 - 2 ), tachycardia. Absent: diastolic murmur, irregular rhythm - GI/Abdominal GI/Abdominal exam: Present: normal bowel sounds, soft. Absent: guarding, hepatomegaly, mass, rebound, splenomegaly, tenderness - Extremities Exam Extremities exam: Present: full ROM, normal capillary refill, warm, radial pulses palpable and symmetrical. Absent: calf tenderness, joint swelling, pedal edema, tenderness - Back Exam Back exam: Absent: CVA tenderness (L), CVA tenderness (R) - Neurological Exam Neurological exam: Present: alert, CN II-XII intact, oriented X3, no focal deficits, strengths equal and symetr throughout - Psychiatric Psychiatric exam: Present: agitated, anxious. Absent: homicidal ideation, suicidal ideation - Skin Skin exam: Present: dry, intact, warm Internal Med - H&P Results - EKG Data -: EKG Interpreted by Myself ([facility] EKG -- atrial fibrillation; Repeat EKG upon arrival -- sinus tach) - Assessment and plan (1) Atrial fibrillation with RVR Current Visit: Yes Status: Resolved Assessment and plan: 1. Currently in sinus tachycardia. 2. Will trend troponins and EKG's. 3. Will order STAT chemistries, TSH, Free T4, and urine drug screen. 4. Suspect hyperthyroidism as etiology +/- cocaine and/or other illicit drug. 5. Will hold off resuming beta paige until UDS confirms no cocaine present. 6. Recent ECHO results reviewed. 7. Given recurrent paroxysmal atrial fibrillation, will consult cardiology for further guidance. 8. Recommend outpatient follow up with endocrinology to consider LOCKHART therapy for hyperthyroidism. (2) Cocaine abuse Current Visit: Yes Status: Suspected Assessment and plan: 1. Patient denies current use, reports only one time use. 2. Will order UDS to confirm. 3. Avoid beta paige until UDS results available. (3) Hyperthyroidism Current Visit: Yes Status: Chronic Assessment and plan: 1. Will order TSH, Free T4. 2. Resume home meds as appropriate once med list verified and UDS resulted. (4) Type 1 diabetes mellitus Current Visit: Yes Status: Chronic Assessment and plan: 1. Will place on SSI and monitor glucose closely. 2. Resume home basal insulin once verified and patient is no longer nauseated. Qualifiers: Diabetes mellitus complication status: with unspecified complications Qualified Code(s): E10.8 - Type 1 diabetes mellitus with unspecified complications (5) DVT prophylaxis Current Visit: Yes Status: Acute Assessment and plan: 1. Heparin SQ.
[2018-06-27] MEDS ORDERED: 0.9 % Sodium Chloride 1,000 ML IVC SCH (22:15)
[2018-06-27] MEDS ORDERED: Insulin LISPRO 300 UNITS/3 ML VIAL SQ SCH (22:15)
[2018-06-27 22:34] LABS: Basophils % 0.2 %; Hematocrit 47.2 % (37.5-50.1); Immature Granulocytes % 0.6 % (0-4); Lymphocytes # 2.6 K/mcL (0.6-4.6); Lymphocytes % 19.4 %; Mean Corpuscular HGB Conc 33.9 g/dL (31.6-35.5); Mean Corpuscular Hemoglobin 30.2 pg (28.0-33.3); Mean Corpuscular Volume 89.1 fL (83.0-100.0); Mean Platelet Volume 9.8 fL (9.4-12.4); Monocytes % 7.6 %; Neutrophils # 9.8 K/mcL (1.6-8.9); Platelet Count 265 K/mcL (140-400); Red Cell Distribution Width 12.7 % (11.5-14.5); Segmented Neutrophils % 72.2 %
[2018-06-27 22:43] LABS: Estimated Average Glucose 303 mg/dl; Hemoglobin A1C 12.2 %; Prothrombin Time 11.4 Seconds (9.4-12.1)
[2018-06-27 22:45] LABS: Activated Partial Thrombo Time 30.3 Seconds (26.0-36.0)
[2018-06-27] MEDS: Pantoprazole 40 MG VIAL IVP SCH (22:54)
[2018-06-27 22:55] LABS: BUN/Creatinine Ratio 18 (6-26); Blood Urea Nitrogen 13 mg/dL (6-20); Calcium 9.6 mg/dL (8.6-10.3); Carbon Dioxide 11 mEq/L (23-29); Chloride 107 mEq/L (98-107); Glucose 254 mg/dL (70-105); Osmolality,Calculated 295 (280-300); Potassium 4.8 mEq/L (3.5-5.1); Sodium 138 mEq/L (136-145); eGFR For Non-African Americans > 60 (> 60)
[2018-06-27 22:57] LABS: Magnesium 1.7 mg/dL (1.6-2.6)
[2018-06-27 23:12] LABS: Triiodothyronine (T3) Free 8.47 pg/mL (2.50-3.90)
[2018-06-27 23:18] LABS: Thyroid Stimulating Hormone < 0.010 mcIU/mL (0.340-5.600)
[2018-06-28] MEDS: Ondansetron 4 MG/2 ML VIAL IVP PRN ×2 (00:06→06:40)
[2018-06-28 03:26] LABS: Amphetamine Screen,Urine Negative ng/mL (Cutoff=1000); Barbiturate Screen,Urine Negative ng/mL (Cutoff=200); Benzodiazepines Screen,Urine Negative ng/mL (Cutoff=200); Cannabinoid Screen,Urine Positive ng/mL (Cutoff = 50); Cocaine Screen,Urine Negative ng/mL (Cutoff= 300); Opiate Screen,Urine Negative ng/mL (Cutoff=300); Phencyclidine Screen,Urine Negative ng/mL (Cutoff=25)
[2018-06-28] MEDS ORDERED: *HR* Heparin 5,000 UNIT/ML VIAL SQ SCH (06:00)
[2018-06-28 06:16] LABS: Alanine Aminotransferase 17 Units/L (7-52); Albumin/Globulin Ratio 1.4 (1.1-2.2); Alkaline Phosphatase 154 Units/L (34-104); Aspartate Amino Transferase 10 Units/L (13-39); BUN/Creatinine Ratio 16 (6-26); Bilirubin,Total 0.4 mg/dL (0.3-1.0); Blood Urea Nitrogen 13 mg/dL (6-20); Calcium 9.7 mg/dL (8.6-10.3); Carbon Dioxide 10 mEq/L (23-29); Chloride 103 mEq/L (98-107); Chol/HDL Ratio 4.7 (0-4.9); Cholesterol 109 mg/dL (< 200); Globulin 2.8 g/dL (2.4-3.5); Glucose 317 mg/dL (70-105); HDL Cholesterol 23 mg/dL (40-59); LDL Cholesterol,Calculated 29 mg/dL (0-99); Magnesium 1.5 mg/dL (1.6-2.6); Osmolality,Calculated 288 (280-300); Potassium 4.9 mEq/L (3.5-5.1); Sodium 133 mEq/L (136-145); Total Protein 6.8 g/dL (6.4-8.9); Triglycerides 283 mg/dL (< 150); eGFR For Non-African Americans > 60 (> 60)
[2018-06-28] MEDS ORDERED: 0.9 % Sodium Chloride 1,000 ML IVC ONE ×2 (06:24→07:41)
[2018-06-28] MEDS: Pantoprazole 40 MG VIAL IVP SCH ×2 (06:32→16:57)
[2018-06-28 07:06] LABS: VBG HCO3 7 mEq/L (21-27); VBG PCO2 19 mmHg (41-51); VBG PH 7.17 pH Units (7.32-7.42); VBG PO2 150 mmHg (25-50)
[2018-06-28] MEDS ORDERED: Insulin LISPRO 300 UNITS/3 ML VIAL SQ SCH ×2 (07:30→21:00)
[2018-06-28] MEDS ORDERED: Insulin Human Regular 5 UNIT in 0.9 % Sodium Chloride 10 ML IV STA (07:37)
[2018-06-28] MEDS ORDERED: Insulin Human Regular 10 UNIT in 0.9 % Sodium Chloride 10 ML IV STA (07:37)
[2018-06-28] MEDS ORDERED: *HR* Metoprolol 5 MG/5 ML VIAL IVP PRN (07:42)
[2018-06-28] MEDS ORDERED: 0.9 % Sodium Chloride 1,000 ML IVC SCH (07:45)
[2018-06-28] MEDS ORDERED: *HR* Dextrose 50 % in Water (Syg) 50 ML SYRINGE IVP PRN ×2 (07:50→08:06)
[2018-06-28] MEDS ORDERED: Insulin Human Regular 100 UNIT in 0.9 % Sodium Chloride 100 ML IVC SCH (08:00)
[2018-06-28] MEDS ORDERED: Insulin Regular, Human 100 UNIT/ML IV PRN (08:06)
[2018-06-28] MEDS ORDERED: 0.9 % Sodium Chloride w KCl 20 MEQ/1,000 ML MLS IVC PRN (08:06)
[2018-06-28] MEDS ORDERED: D5% in 0.45% NACL 1,000 ML IVC PRN ×2 (08:06→08:16)
[2018-06-28] MEDS ORDERED: 0.45 % Sodium Chloride w/KCl 20 MEQ/1,000 ML MLS IVC PRN (08:06)
[2018-06-28] MEDS ORDERED: *HR* Heparin 5,000 UNIT/ML VIAL IVP PRN ×2 (08:08)
[2018-06-28] MEDS ORDERED: *HR* Heparin 5,000 UNIT/ML VIAL IVP ONE (08:08)
[2018-06-28] MEDS ORDERED: Heparin 25,000 UNIT/500 ML D5W 25,000 UNIT/500 ML BAG IVC SCH (08:15)
[2018-06-28] MEDS ORDERED: D5% in 0.45% NACL w KCl 20 MEQ/1,000 ML MLS IVC PRN (08:16)
[2018-06-28] MEDS: methIMAzole 5 MG TABLET PO SCH ×2 (08:27→14:02)
[2018-06-28] MEDS ORDERED: Aspirin 81 MG TAB.CHEW PO SCH (09:00)
[2018-06-28] MEDS ORDERED: NON-FORMULARY MEDICATION 1 EACH EACH (Insulin Glargine [Lantus] 20 UNIT) SQ SCH (09:00)
[2018-06-28] MEDS ORDERED: Insulin DETEMIR 100 UNIT/ML X5UNITS SQ SCH ×2 (09:00→18:05)
[2018-06-28 09:15] LABS: Hematocrit 45.8 % (37.5-50.1); Hemoglobin 14.8 g/dL (12.9-16.9); Mean Corpuscular HGB Conc 32.3 g/dL (31.6-35.5); Mean Corpuscular Hemoglobin 30.1 pg (28.0-33.3); Mean Corpuscular Volume 93.1 fL (83.0-100.0); Platelet Count 264 K/mcL (140-400); Red Blood Count 4.92 M/mcL (4.19-5.50); Red Cell Distribution Width 12.7 % (11.5-14.5)
[2018-06-28 09:26] LABS: Heparin anti-factor XA UFH 0.08 IU/mL (0.30-0.70); Prothrombin Time 11.1 Seconds (9.4-12.1)
--- NOTE | 2018-06-28 09:50 | Electrocardiograph Report ---
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
[2018-06-28 10:39] LABS: ABG Base Excess -23 mEq/L (-2 to 3); ABG HCO3 5 mEq/L (21-27); ABG Oxygen Saturation 97 % (95-98); ABG PCO2 17 mmHg (35-45); ABG PH 7.08 pH Units (7.32-7.45); ABG PO2 121 mmHg (85-104); ABG TCO2 6 mEq/L (20-26)
[2018-06-28 11:16] LABS: BUN/Creatinine Ratio 16 (6-26); Blood Urea Nitrogen 13 mg/dL (6-20); Calcium 8.8 mg/dL (8.6-10.3); Carbon Dioxide 5 mEq/L (23-29); Chloride 112 mEq/L (98-107); Glucose 266 mg/dL (70-105); Osmolality,Calculated 291 (280-300); Potassium 4.5 mEq/L (3.5-5.1); Sodium 136 mEq/L (136-145); eGFR For Non-African Americans > 60 (> 60)
--- NOTE | 2018-06-28 11:46 | Cardiology Consult Note ---
<DonyMiguel Ángel R - Last Filed: 06/28/18 12:18> Date of Encounter: 06/28/18 Time of Encounter: 11:44 Assessment and Plan (1) PAF (paroxysmal atrial fibrillation) Current Visit: Yes Status: Acute Known hx of PAF diagnosed 03/2018. Presents in A-Fib RVR in setting of DKA and hyperthyroidism (thyroid storm). TSH <0.010, Free T4 3.22, Free T3 8.47. HR currently 140s on cardizem gtt at 20mg/hr. Anticipate HR will improve as underlying acute issues improve. K 4.5, Mag 1.5--will replace. Admits to marijuana use. Reports hx of cocaine use one time months ago with no repeated use. Denies ETOH use, excessive caffeine intake or energy drinks. TTE 03/2018 --EF 65%, mild LVDD, no significant valvular dysfunction. [id number] 2--DMI, HTN given LVH on ECG. Currently on heparin gtt. Recommend fpc AC. Will méndez check NOAC. Continue to follow. Discussion w patient/family: The assessment and plan as outlined above was discussed with the patient and/or family members who expressed understanding and agreement. All questions were answered. Thank you for involving us in the care of your patient. Please call with any questions. I will discuss all the above with Dr. Self and make changes as necessary. History of Present Illness Consult date: 06/28/18 Requesting physician: Alli Walker Consult reason: PAF Chief complaint: palpitations, chest pain History of present illness: Mr. Hi is a 42 year old male with PMH of type 1 diabetes, tobacco abuse, hyperthyroidism, grave's disease, presented in transfer from [facility] in [place]. He presented there with complaints of palpitations and chest tightness all day. He was found to be in atrial fibrillation with RVR. He was started on Cardizem bolus and drip. He was transferred here for ongoing care and ca rdiology consultation. Pt has since been moved to ICU for DKA. HR currently 140s on cardizem gtt at 20mg/hr. He denies chest pain or palpitations currently. Troponin negative. TTE 03/2018 --EF 65%, mild LVDD, no significant valvular dysfunction. Cardiology consulted for further recs. Past Med Surg Social Fam HX - Past Medical History Medical history: atrial fibrillation, diabetes, thyroid disease Psychiatric history: no psych history - Past Surgical History Surgical History: other Additional surgical history: left middle finger sx, one testicle removed - Social History Smoking Status: Current every day smoker Smokeless Tobacco Status: Yes Alcohol use: rarely Drug use: cocaine (reports only one time use several months ago), opiates, marijuana - Family History Mother Living Status: Still Living Hx Family Cardiac Disorders: Yes Hx Family Respiratory Disorders: No Hx Family Cancer: Yes (skin) Hx Family GI Disorders: No Hx Family Endocrine Disorder: Yes (dm) Hx Family Neuromuscular Disorders: No Hx Family Neurologic Disorders: No Hx Family HEENT Disorders: No Hx Family Autoimmune Disorders: No Father Living Status: Still Living Hx Family Cardiac Disorders: No Hx Family Respiratory Disorders: No Hx Family Cancer: No Hx Family GI Disorders: No Hx Family Endocrine Disorder: No Hx Family Neuromuscular Disorders: No Hx Family Neurologic Disorders: No Hx Family HEENT Disorders: No Hx Family Autoimmune Disorders: No Medications and Allergies Aspirin 81 mg PO DAILY 30 Days #30 tab.chew 03/25/18 [Rx] Propranolol [Inderal] 10 mg PO Q8HR 20 Days #60 tablet 03/25/18 [Rx] Insulin LISPRO [HumaLOG] 0 - 10 units SQ TIDWM 06/28/18 [History] dilTIAZem HCl [Diltiazem 24Hr Cd] 240 mg PO DAILY 06/28/18 [History] methIMAzole [Methimazole] 20 mg PO BID 06/28/18 [History] Allergy/AdvReac Type Severity Reaction Status Date / Time No Known Allergies Allergy Verified 06/28/18 10:19 All Systems Review: The remainder of the systems were reviewed and are negative - Cardiovascular Cardiovascular: as per HPI, chest pain at rest, palpitations - Respiratory Respiratory: dyspnea Physical Examination Vital Signs, Last 4 Hours Temp Pulse Resp BP Pulse Ox 06/28/18 10:00 132 21 156/79 97 06/28/18 09:00 149 21 148/76 97 06/28/18 08:22 181 149/78 97 06/28/18 08:11 98.2 F 153 21 97 Vital Signs Temp Pulse Resp BP Pulse Ox 06/28/18 10:00 132 21 156/79 97 06/28/18 09:00 149 21 148/76 97 06/28/18 08:22 181 149/78 97 06/28/18 08:11 98.2 F 153 21 97 06/28/18 07:09 98.8 F 130 14 153/62 97 06/28/18 04:42 98.2 F 118 19 147/81 96 06/27/18 23:49 98.8 F 108 18 169/90 97 06/27/18 20:49 98.1 F 105 19 157/91 97 Intake and Output 06/27/18 06/28/18 06/28/18 23:59 07:59 15:59 Intake Total 0 / 0 2681.0 / 2681.0 90 / 90 Output Total 1500 / 1500 2500 / 2500 800 / 800 Balance -1500 / -1500 181.0 / 181.0 -710 / -710 Intake: IV Fluids 2031.0 / 2031.0 90 / 90 0.9 % Sodium Chloride 1,000 ML 2000 / 2000 @ 999 mls/hr IVC .Q1H1M ONE Rx# :[id number] Cardizem 50 MG In 0.9 % Sodium 31.0 / 31.0 69 / 69 Chloride 40 ML @ 5 MG/HR 5 mls/ hr IVC .Q10H XOCHILT Rx#:[id number] HumuLIN R 100 UNIT In 0.9 % 21 / 21 Sodium Chloride 100 ML @ 0.1 UNIT/KG/HR 6.55 mls/hr IVC CONT XOCHILT Rx#:[id number] Oral 0 / 0 650 / 650 Output: Urine 1050 / 1050 1700 / 1700 800 / 800 Emesis 450 / 450 800 / 800 Other: Weight 64.9 kg 64.9 kg Blood Glucose* 205 318 212 Patient Weight 06/28/18 23:59 Weight 64.9 kg General: Conversant, No Apparent Distress HEENT: Atraumatic, Normocephaly, Mucus Membranes Moist Neck: No JVD, Normal carotid pulses Cardiac: Other (irregularly irregular) Lungs: Normal Breath Sounds, No Wheeze, Rales, Rhonchi Neuro: Alert and responsive, No focal deficits noted Abdomen: Soft, Non-Tender Skin: No rashes noted on visualized skin Musculoskeletal: No Chest Wall Tenderness Extremities: No Clubbing, No Cyanosis, No Edema, Normal Pulses Results 06/28/18 08:39 06/28/18 10:43 Lab Results 06/27/18 06/27/18 06/27/18 22:19 22:19 22:19 WBC 13.5 H Hgb 16.0 Hct 47.2 Plt Count 265 INR 1.0 APTT 30.3 Sodium Potassium Chloride Carbon Dioxide BUN Creatinine Glucose Calcium Magnesium 1.7 Total Bilirubin AST ALT Alkaline Phosphatase Troponin I TSH < 0.010 L 06/27/18 06/27/18 06/28/18 22:19 22:19 05:00 WBC Hgb Hct Plt Count INR APTT Sodium 138 133 L Potassium 4.8 4.9 Chloride 107 103 Carbon Dioxide 11 L 10 L* BUN 13 13 Creatinine 0.71 0.79 Glucose 254 H 317 H Calcium 9.6 9.7 Magnesium 1.5 L Total Bilirubin 0.4 AST 10 L ALT 17 Alkaline Phosphatase 154 H Troponin I < 0.03 TSH 06/28/18 06/28/18 06/28/18 05:00 08:39 08:39 WBC 24.0 H D Hgb 14.8 Hct 45.8 Plt Count 264 INR 1.0 APTT Sodium Potassium Chloride Carbon Dioxide BUN Creatinine Glucose Calcium Magnesium Total Bilirubin AST ALT Alkaline Phosphatase Troponin I < 0.03 TSH 06/28/18 06/28/18 10:43 10:43 WBC Hgb Hct Plt Count INR APTT Sodium 136 Potassium 4.5 Chloride 112 H Carbon Dioxide 5 L* BUN 13 Creatinine 0.83 Glucose 266 H Calcium 8.8 Magnesium Total Bilirubin AST ALT Alkaline Phosphatase Troponin I < 0.03 TSH Short CBC 06/28/18 06/27/18 Range/Units 08:39 22:19 WBC 24.0 H D 13.5 H (4.3-11.1) K/mcL Hgb 14.8 16.0 (12.9-16.9) g/dL Hct 45.8 47.2 (37.5-50.1) % Plt Count 264 265 (140-400) K/mcL Neutrophils # 9.8 H (1.6-8.9) K/mcL BMP 06/28/18 06/28/18 06/27/18 Range/Units 10:43 05:00 22:19 Sodium 136 133 L 138 (136-145) mEq/L Potassium 4.5 4.9 4.8 (3.5-5.1) mEq/L Chloride 112 H 103 107 (98-107) mEq/L Carbon Dioxide 5 L* 10 L* 11 L (23-29) mEq/L BUN 13 13 13 (6-20) mg/dL Creatinine 0.83 0.79 0.71 (0.70-1.30) mg/dL Glucose 266 H 317 H 254 H (70-105) mg/dL Calcium 8.8 9.7 9.6 (8.6-10.3) mg/dL Cardiac Enzymes 06/28/18 06/28/18 06/27/18 Range/Units 10:43 05:00 22:19 Troponin I < 0.03 < 0.03 < 0.03 (< 0.04) ng/mL Liver Function 06/28/18 Range/Units 05:00 Total Bilirubin 0.4 (0.3-1.0) mg/dL AST 10 L (13-39) Units/L ALT 17 (7-52) Units/L Alkaline Phosphatase 154 H (34-104) Units/L Albumin 4.0 (3.5-5.7) g/dL Active Medications Acetaminophen (Tylenol) 650 mg PO Q6HR PRN PRN Reason: Mild Pain/Fever Stop: 12/27/18 22:02 Aspirin (Aspirin) 81 mg PO DAILY XOCHILT Stop: 12/28/18 09:01 Last Admin: 06/28/18 08:27 Dose: 81 mg Dextrose/Water (Dextrose 50% (Syg)) 25 ml IVP AD PRN PRN Reason: Hypoglycemia Stop: 12/27/18 22:06 Dextrose/Water (Dextrose 50% (Syg)) 25 ml IVP Q15MIN PRN PRN Reason: Hypoglycemia Stop: 12/28/18 07:51 Glucagon (Glucagen) 1 mg IM ONCE PRN PRN Reason: Hypoglycemia Stop: 12/27/18 22:06 Glucose (Gluctose) 15 gm PO ONCE PRN PRN Reason: Hypoglycemia Stop: 12/27/18 22:06 Glucose (Gluctose) 30 gm PO ONCE PRN PRN Reason: Hypoglycemia Stop: 12/27/18 22:06 Heparin Sodium (Porcine) (Heparin) 4,500 unit 70 unit/kg (4500 unit) IVP Q6HR PRN PRN Reason: SEE COMMENTS Stop: 12/28/18 08:09 Heparin Sodium (Porcine) (Heparin) 2,300 unit 35 unit/kg (2300 unit) IVP Q6H PRN PRN Reason: SEE COMMENTS Stop: 12/28/18 08:09 Dextrose (Dextrose 5%) 1,000 mls @ 100 mls/hr IVC .Q10H PRN PRN Reason: HYPOGLYCEMIA Stop: 12/27/18 22:06 Diltiazem HCl 50 mg/ Sodium (Chloride) 50 mls @ 5 mls/hr IVC .Q10H XOCHILT; Protocol Stop: 12/27/18 22:16 Last Admin: 06/28/18 10:56 Dose: 20 mg/hr, 20 mls/hr Sodium Chloride (0.9 % Sodium Chloride) 1,000 mls @ 200 mls/hr IVC .Q5H XOCHILT Stop: 06/28/18 12:44 Last Admin: 06/28/18 09:01 Dose: 200 mls/hr Insulin Human Regular 100 unit (/ Sodium Chloride) 101 mls @ 6.55 mls/hr IVC CONT XOCHILT; Protocol Stop: 12/28/18 08:01 Last Titration: 06/28/18 11:02 Dose: 0.4 unit/kg/hr, 26.22 mls/hr Insulin Human Regular 100 unit (/ Sodium Chloride) 101 mls @ 6.55 mls/hr IVC CONT XOCHILT; Protocol Stop: 12/28/18 08:01 Potassium Chloride (Potassium Chloride 10 Meq/100ml) 10 meq in 100 mls @ 100 mls/hr IVPB Q1H PRN PRN Reason: Potassium less than 3.3 mEq/L Heparin Sodium/Dextrose (Heparin 25,000 Unit/500 Ml D5w) 25,000 unit in 500 mls @ 18.172 mls/hr IVC .Q24H XOCHILT; Protocol Stop: 12/28/18 08:16 Last Admin: 06/28/18 09:23 Dose: 14 unit/kg/hr, 18.172 mls/hr Potassium Chloride/Sodium Chloride (Kcl 20meq In 0.45 % Nacl) 20 meq in 1,000 mls @ 500 mls/hr IVC .Q2H PRN; Protocol PRN Reason: DKA Stop: 12/28/18 08:07 Potassium Chloride/Sodium Chloride (Kcl 20 Meq In 0.9% Sodium Chloride) 20 meq in 1,000 mls @ 500 mls/hr IVC .Q2H PRN; Protocol PRN Reason: DKA Stop: 12/28/18 08:16 Last Admin: 06/28/18 09:17 Dose: 500 mls/hr, 500 mls/hr Dextrose/Sodium Chloride (D5% And 0.45% Nacl 1000 Ml Bag) 1,000 mls @ 250 mls/hr IVC .Q4H PRN PRN Reason: See comments Stop: 12/28/18 08:07 Potassium Chloride/Dextrose/Sod Cl (Kcl 20meq In D5%-0.45 Nacl) 20 meq in 1,000 mls @ 250 mls/hr IVC .Q4H PRN PRN Reason: See Comments Stop: 12/28/18 08:07 Insulin Human Regular (Humulin R) 5 unit IV ONCE PRN PRN Reason: SEE COMMENTS Stop: 12/28/18 08:07 Methimazole (Tapazole) 20 mg PO Q6H XOCHILT Stop: 12/28/18 08:01 Last Admin: 06/28/18 08:27 Dose: 20 mg Metoprolol Tartrate (Lopressor) 5 mg IVP Q6HR PRN PRN Reason: HR>110 Stop: 12/28/18 07:43 Morphine Sulfate (Morphine Sulfate) 2 mg IVP Q3H PRN; Protocol PRN Reason: Chest Pain Stop: 12/27/18 22:06 Last Admin: 06/28/18 06:53 Dose: 2 mg Naloxone HCl (Narcan) 0.4 mg IVP Q2MIN PRN PRN Reason: SEE COMMENTS Stop: 12/27/18 22:02 Ondansetron HCl (Zofran) 4 mg IVP Q6HR PRN; Protocol PRN Reason: Nausea Stop: 12/27/18 22:02 Last Admin: 06/28/18 06:40 Dose: 4 mg Pantoprazole Sodium (Protonix) 40 mg IVP Q12HR XOCHILT Stop: 12/27/18 22:28 Last Admin: 06/28/18 06:32 Dose: 40 mg Propranolol HCl (Inderal) 10 mg PO Q8HR XOCHILT Stop: 12/28/18 11:49 Sodium Bicarbonate (Sodium Bicarbonate) 50 meq IVP ONCE ONE Stop: 06/28/18 11:49 - Imaging and Cardiology Echo: report reviewed - EKG Interpretation EKG results cardiology: personally reviewed (A-Fib RVR) Consult Discharge Plan - Plan Referrals: NONE,PCP [Primary Care Provider] - <Steven Self A - Last Filed: 06/28/18 14:00> Date of Encounter: 06/28/18 - Attending Attestation I have personally performed a face to face evaluation on this patient. I have reviewed and agree with the documented findings and care plan as documented by the EARRINGS FABRICATOR. History and Exam by me shows: 42-year-old diabetic male admitted for A. fib with RVR in the setting of possible thyroid storm. He has not been following up regularly for diabetes control and it appears he is in DKA at this time. AAOX3 in NAD at the bedside Hemodynamically stable Cardiopulmonary exam revealed S1, S2, no murmur; clear lungs Rhythm reviewed - sinus rhythm, no acute ST T changes Echo preserved EF, no significant valvular heart disease Impression/plan: Continue Cardizem drip for atrial fibrillation rate control. Treat hyperthyroidism as this is likely contributing to RVR. Needs anticoagulation terminal operations supervisor. Needs better control of diabetes. 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 Thanks, Steven Self MD FACC Assessment and Plan Discussion w patient/family: The assessment and plan as outlined above was discussed with the patient and/or family members who expressed understanding and agreement. All questions were answered. Thank you for involving us in the care of your patient. Please call with any questions. History of Present Illness History of present illness: Mr. Hi is a 42 year old male All Systems Review: The remainder of the systems were reviewed and are negative Physical Examination Vital Signs, Last 4 Hours Temp Pulse Resp BP Pulse Ox 06/28/18 13:12 79 06/28/18 13:00 83 21 134/89 97 06/28/18 12:11 153 06/28/18 12:00 129 21 154/87 97 06/28/18 11:50 98.4 F 06/28/18 11:00 132 21 126/80 97 06/28/18 10:00 132 21 156/79 97 Results 06/28/18 08:39 06/28/18 12:54 Lab Results 06/27/18 06/27/18 06/27/18 22:19 22:19 22:19 WBC 13.5 H Hgb 16.0 Hct 47.2 Plt Count 265 INR 1.0 APTT 30.3 Sodium Potassium Chloride Carbon Dioxide BUN Creatinine Glucose Calcium Magnesium 1.7 Total Bilirubin AST ALT Alkaline Phosphatase Troponin I TSH < 0.010 L 06/27/18 06/27/18 06/28/18 22:19 22:19 05:00 WBC Hgb Hct Plt Count INR APTT Sodium 138 133 L Potassium 4.8 4.9 Chloride 107 103 Carbon Dioxide 11 L 10 L* BUN 13 13 Creatinine 0.71 0.79 Glucose 254 H 317 H Calcium 9.6 9.7 Magnesium 1.5 L Total Bilirubin 0.4 AST 10 L ALT 17 Alkaline Phosphatase 154 H Troponin I < 0.03 TSH 06/28/18 06/28/18 06/28/18 05:00 08:39 08:39 WBC 24.0 H D Hgb 14.8 Hct 45.8 Plt Count 264 INR 1.0 APTT Sodium Potassium Chloride Carbon Dioxide BUN Creatinine Glucose Calcium Magnesium Total Bilirubin AST ALT Alkaline Phosphatase Troponin I < 0.03 TSH 06/28/18 06/28/18 06/28/18 10:43 10:43 12:54 WBC Hgb Hct Plt Count INR APTT Sodium 136 138 Potassium 4.5 3.8 Chloride 112 H 113 H Carbon Dioxide 5 L* 11 L BUN 13 11 Creatinine 0.83 0.70 Glucose 266 H 161 H Calcium 8.8 8.7 Magnesium Total Bilirubin AST ALT Alkaline Phosphatase Troponin I < 0.03 TSH
[2018-06-28] MEDS ORDERED: Sodium Bicarbonate 50 MEQ/50 ML VIAL IVP ONE (11:48)
[2018-06-28] MEDS: D5% in 0.45% NACL w KCl 20 MEQ/1,000 ML MLS IVC PRN ×2 (12:07→16:19)
[2018-06-28 13:33] LABS: BUN/Creatinine Ratio 16 (6-26); Blood Urea Nitrogen 11 mg/dL (6-20); Calcium 8.7 mg/dL (8.6-10.3); Carbon Dioxide 11 mEq/L (23-29); Chloride 113 mEq/L (98-107); Glucose 161 mg/dL (70-105); Osmolality,Calculated 289 (280-300); Potassium 3.8 mEq/L (3.5-5.1); Sodium 138 mEq/L (136-145); eGFR For Non-African Americans > 60 (> 60)
[2018-06-28 14:05] LABS: ABG Base Excess -14 mEq/L (-2 to 3); ABG HCO3 12 mEq/L (21-27); ABG Oxygen Saturation 96 % (95-98); ABG PCO2 27 mmHg (35-45); ABG PH 7.25 pH Units (7.32-7.45); ABG PO2 92 mmHg (85-104); ABG TCO2 12 mEq/L (20-26)
--- NOTE | 2018-06-28 14:50 | Electrocardiograph Report ---
[address] [place] [address] Test Date: 2018-06-27 Pat Name: Jason Hi Department: 111 Room: 10 Gender: M Tele Tech: [id number] : [id number] Requested By: Alli Walker Order Number: [id number] Reading MD: Ammon Lua Measurements Intervals [place] Rate: 112 P: 70 ME: 116 QRS: 62 QRSD: 83 T: 69 QT: 341 QTc: 408 Interpretive Statements SINUS TACHYCARDIA WITH SHORT ME INTERVAL LEFT VENTRICULAR HYPERTROPHY AND ST-T CHANGE Electronically Signed On 06-28-2018 14:48:31 EST by Ammon Lua
[2018-06-28 15:21] LABS: BUN/Creatinine Ratio 14 (6-26); Blood Urea Nitrogen 9 mg/dL (6-20); Calcium 8.7 mg/dL (8.6-10.3); Carbon Dioxide 14 mEq/L (23-29); Chloride 114 mEq/L (98-107); Glucose 132 mg/dL (70-105); Osmolality,Calculated 285 (280-300); Potassium 3.9 mEq/L (3.5-5.1); Sodium 137 mEq/L (136-145); eGFR For Non-African Americans > 60 (> 60)
--- NOTE | 2018-06-28 17:28 | Discharge Summary ---
- NOTES TO OUTPATIENT PROVIDER Notes to Outpatient Provider: Patient with history of poorly controlled type I diabetes, hyperthyroidism, complicated by noncompliance, was admitted for DKA and possible thyroid storm. HR in the range of 160-170s with pH 7.08 on presentation. Improved with IVF, IV insulin, propranolol,and methimazole but due to lack of endocrinology support at our facility, transfer arrangement was made to [facility]. Orders not resulted at time of discharge: Pending orders 06/28/18 16:46 BMP [Basic Metabolic Panel] Stat Magnesium Stat 06/28/18 21:30 Heparin anti-factor XA UFH [COAG] Stat Date of Encounter: 06/28/18 Time of Encounter: 07:15 - Discharge Diagnosis (1) Type 1 diabetes mellitus Priority: Secondary Status: Chronic Qualifiers: Diabetes mellitus complication status: with unspecified complications Qualified Code(s): E10.8 - Type 1 diabetes mellitus with unspecified complications (2) DVT prophylaxis Priority: Secondary Status: Acute (3) Atrial fibrillation with RVR Priority: Primary Status: Resolved (4) Hyperthyroidism Priority: Secondary Status: Chronic (5) Cocaine abuse Priority: Secondary Status: Suspected (6) Thyroid storm Priority: Secondary Status: Acute Qualifiers: Thyrotoxicosis type: unspecified thyrotoxicosis type Qualified Code(s): E05.91 - Thyrotoxicosis, unspecified with thyrotoxic crisis or storm (7) DKA (diabetic ketoacidoses) Priority: Secondary Status: Acute Qualifiers: Diabetes mellitus type: type 1 Diabetes mellitus complication detail: without coma Qualified Code(s): E10.10 - Type 1 diabetes mellitus with ketoacidosis without coma Hospital course: Mr. Hi is a 42 year old male with history of poorly controlled type I diabetes, hyperthyroidism, complicated by noncompliance, who was admitted for DKA, afib with RVR, and possible thyroid storm. HR in the range of 160-170s with pH 7.08 on presentation. Improved with IVF, IV insulin, propranolol,and methima zole. Also required 1 amp of bicarb for acidemia. Placed on heparin gtt for anticoagulation for afib. We were able to transition his insulin gtt to SQ prior to the transfer but due to lack of endocrinology support at our facility regarding possible thyroid storm, transfer arrangement was made to [facility]. Discharge discussed with: patient, nurse - Time Spent with Patient Total time spent providing and/or coordinating discharge services: 49 mins - Discharge Medications Home Medications: Aspirin 81 mg PO DAILY 30 Days #30 tab.chew 03/25/18 [Rx] Propranolol [Inderal] 10 mg PO Q8HR 20 Days #60 tablet 03/25/18 [Rx] Insulin LISPRO [HumaLOG] 0 - 10 units SQ TIDWM 06/28/18 [History] dilTIAZem HCl [Diltiazem 24Hr Cd] 240 mg PO DAILY 06/28/18 [History] methIMAzole [Methimazole] 20 mg PO BID 06/28/18 [History] Allergies/Adverse Reactions: Allergy/AdvReac Type Severity Reaction Status Date / Time No Known Allergies Allergy Verified 06/28/18 10:19 Date of admission: 06/28/18 15:28 Primary care physician: PCP NONE Consults: 06/27/18 22:03 Consult to Physician [CONS] Routine Consulting Provider: AramisSunday Francisco Javier Reason for Consult: atrial fibrillation/RVR -- paroxysmal Call Completed: No - Constitutional Vitals: Temp Pulse Resp BP Pulse Ox 98.4 F 97 21 106/75 97 06/28/18 11:50 06/28/18 17:00 06/28/18 17:00 06/28/18 17:00 06/28/18 17:00 General appearance: Present: A&O X 3, no acute distress, answers questions appropriately Exam: General: Alert and oriented, not in acute distress. Cardiovascular:tachycardic, irregular rhythm. S1 & S2, No JVD Lungs: clear to auscultation, no wheezes/rales Abdomen:Soft, non-tender, no rigidity. Extremities:No deformity or swelling Neurological:Normal cognition and motor skills. Non-focal - Patient Status Disposition: Transfer Critical Access Hosp Condition: Fair Overall status at discharge: patient is progressing back to baseline - Discharge Instructions Instructions: Atrial Fibrillation (DC), Diabetes Mellitus Type 1 in Adults (DC) Follow Up With: NONE,PCP [Primary Care Provider] - - Diet and Activity Activity: as per physical therapy Diet: diabetic diet
[2018-06-28 17:31] LABS: BUN/Creatinine Ratio 12 (6-26); Blood Urea Nitrogen 8 mg/dL (6-20); Carbon Dioxide 18 mEq/L (23-29); Chloride 115 mEq/L (98-107); Glucose 113 mg/dL (70-105); Osmolality,Calculated 281 (280-300); Potassium 4.3 mEq/L (3.5-5.1); Sodium 136 mEq/L (136-145); eGFR For Non-African Americans > 60 (> 60)
[2018-06-28 18:36] VITALS: BP 141/83
[2018-06-29] MEDS ORDERED: Insulin LISPRO 300 UNITS/3 ML VIAL SQ SCH (07:30)
== END 2018-06-28 18:51 | disposition critical access hospital (66) | DRG 308 ==
LOC: 2NENU → SUATTDRO 20:18 → ICNU 06-28 08:04
PROVIDERS: ADMIT Hospitalist; ATTEND Internal Medicine